=== PATIENT | female | born 1960 | race Caucasian/White ===

== ENCOUNTER 2018-07-28 11:31 | Emergency (ER) | payer MEDICARE ==
[2018-07-28 11:41] VITALS: RESP 18; TEMP 98.1
--- NOTE | 2018-07-28 12:19 | ED ---
General Adult HPI - General Chief complaint: Fall Stated complaint: Fall-arm lac, head injury Source: patient, RN notes reviewed, old records reviewed Mode of arrival: ambulatory Limitations: no limitations - History of Present Illness Initial comments: 58-year-old female patient past medical history of diabetes presents to ED after sustaining a mechanical fall today. Patient was walking in her home when she tripped over a pile of wood and fell forward. Patient reports that she hit her head and scraped her arm on a piece of wood. Patient also reports some pain in her lumbar spine. Patient denies use of blood thinners. Patient denies loss of consciousness. Patient denies headache or changes in vision. Patient denies pain and cervical spine. Patient is ambulatory without difficulty. Patient complains of a abrasion on her right arm. Patient complains of some mild pain in her lumbar spine. Patient denies any other injury sustained. Patient denies chest pain, abdominal pain, shortness of breath. Patient reports that she had her tetanus updated last year. Systemic: Pt denies fatigue, myalgia, fever/chills, rash. Pt denies weakness, night sweats, weight loss. Neuro: Pt denies headache, visual disturbances, syncope or pre-syncope. HEENT: Pt denies ocular discharge or irritation, otalgia, rhinorrhea, pharyngitis or notable lymphadenopathy. Cardiopulmonary: Pt denies chest pain, SOB, heart palpitations, dyspnea on exertion. Abdominal/GI: Pt denies abdominal pain, n/v/d. : Pt denies dysuria, burning w/ urination, frequency/urgency. Denies new onset urinary or bowel incontinence. MSK: Pt denies myalgia, loss of strength or function in extremities. Neuro: Pt denies new onset weakness, paresthesias. - Related Data Previous Rx's Medication Instructions Recorded Levofloxacin [Levaquin] 750 mg PO DAILY 5 Days #5 tab 07/28/18 Allergies Allergy/AdvReac Type Severity Reaction Status Date / Time No Known Allergies Allergy Verified 07/28/18 11:41 Review of Systems ROS Statement: Those systems with pertinent positive or pertinent negative responses have been documented in the HPI. ROS Other: All systems not noted in ROS Statement are negative. Past Medical History Past Medical History: Diabetes Mellitus Additional Past Medical History / Comment(s): CAD. 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 HEENT: NC/AT, trachea midline, neck supple, no lymphadenopathy. Posterior pharynx non erythematous, without exudates. External ears appear normal, without discharge. Mucous membranes moist. Eyes PERRLA, EOM intact. There is no scleral icterus. No pallor noted. Cardiopulmonary: RRR, no murmurs, rubs or gallops, no JVD noted. Lungs CTAB in anterior and posterior saini. No peripheral edema. Abdominal exam: Abdomen soft and non-distended. Abdomen non-tender to palpation in all 4 quadrants. Bowel sounds active in LLQ. No hepatosplenomegaly. No ecchymosis Neuro: CN II-XII intact. No nuchal rigidity. No focal deficit, no facial droop. MSK: No cervical spine tenderness. Full active range of motion in neck. Thoracic spine nontender to palpation. Right para-lumbar spine mildly tender to palpation. Patient states that this pain that she was complaining of. Patient is ambulatory without difficulty. Heel to toe walking intact. Psoas and quadriceps strength 5 out of 5. Plantar and dorsiflexion 5 out of 5. Patellar and Achilles reflexes 2 out of 4. Posterior tibialis and radial pulse +2 bilaterally. Sensation intact in upper and lower extremities. Full active range of motion in upper and lower extremities. No posterior calf tenderness bilaterally, homans sign negative bilaterally. Approximately 8 abrasion on her ulnar surface of right forearm. approximately 5 cm laceration noted on R ulnar forearm. Pt neurovascularly intact before and after suture. Limitations: no limitations Course Vital Signs 07/28/18 07/28/18 11:38 16:28 Temperature 98.1 F 98.1 F Pulse Rate 78 74 Respiratory 18 18 Rate Blood Pressure 127/75 124/70 O2 Sat by Pulse 99 100 Oximetry Procedures - Laceration Laceration #1 Consent Obtained: verbal consent Time Out Performed: Yes Indication: laceration Site: hand Size (cm): 5 Description: linear Depth: simple, single layer Anesthetic Used: lidocaine 1% Anesthesia Technique: local infiltration Amount (mls): 5 Pre-repair: wound explored, irrigated extensively Type of Sutures: nylon Size of Sutures: 5-0 Number of Sutures: 12 Technique: simple, interrupted Patient Tolerated Procedure: well, no complications Medical Decision Making - Medical Decision Making 58-year-old female patient past medical history of diabetes presents to ED after sustaining a mechanical fall today. Patient was walking in her home when she tripped over a pile of wood and fell forward. Patient reports that she hit her head and scraped her arm on a piece of wood. Patient also reports some pain in her lumbar spine. Patient denies use of blood thinners. Patient denies loss of consciousness. Patient denies headache or changes in vision. Patient denies pain and cervical spine. Physical exam displayed normal neurologic exam. An 8 cm abrasion ulnar surface of her right forearm, approximately 5 cm laceration. Pt to return in 10 days for suture removal. Pt educated extensively about suture care and s/sx of infection. CT displayed No acute intracranial abnormality no acute fracture cervical spine. Displayed some spinal canal stenosis. Also displayed CPD possible thyroid nodule. Lumbar CT didn't display any acute process. Forearm CT did not display any acute process. Chest x-ray displayed possible left lower lobe pneumonia. Laceration closed with 12 sutures in ED. Pt did not need tetanus update. Patient tolerated procedure well. Patient treated for pneumonia with 1 g of Rocephin in ED, levaquin outpatient. Patient to follow up with primary care provider tomorrow. Patient to return to ED if any new signs or symptoms develop. Case discussed with Dr. Morales. Disposition Clinical Impression: Community acquired pneumonia, Fall Disposition: HOME SELF-CARE Condition: Good Instructions: Fall Prevention for Older Adults (ED), Community Acquired Pneumonia (ED) Additional Instructions: Patient to adhere to previously discussed treatment plan and will take medication(s) as directed. Patient to follow up with PCP in 1-2 days. Patient to return to ED if symptoms do not improve. Prescriptions: Levofloxacin [Levaquin] 750 mg PO DAILY 5 Days #5 tab Is patient prescribed a controlled substance at d/c from ED?: No Referrals: Remington Zabala MD [Primary Care Provider] - 1-2 days Time of Disposition: 16:04
--- NOTE | 2018-07-28 12:58 | CT ---
EXAMINATION TYPE: CT brain catie sargetn DATE OF EXAM: 07/28/2018 COMPARISON: None HISTORY: 58-year-old female with pain after Fall today with LOC CT DLP: 1206.3 mGycm Automated exposure control for dose reduction was used. Technique: Examination of the head was done in axial plane without intravenous contrast. Coronal and sagittal reconstructions performed. CT of the cervical spine was obtained in axial plane without intravenous injection of contrast mater ial. Coronal and sagittal reformatted images were obtained from the axial views for evaluation of f ractures, spinal alignment and canal. FINDINGS: Head: There is no evidence of acute intracranial hemorrhage, acute ischemic changes, mass, mass-effect, or extra-axial fluid collection. There is no effacement of cerebral sulci or basal subarachnoid cister ns. There is no hydrocephalus. There is no midline shift. Pacheco-white matter distinction is preserv ed. Scattered mild white matter hypodensities suggesting mild burden of chronic small vessel ischemic dis ease. Paranasal sinuses and mastoid air cells well pneumatized. Orbits and globes are intact. Cervical spine: No craniocervical junction abnormally, predental space widening, or prevertebral soft tissue swelling . Reversal of the normal cervical lordosis. Moderate disc/endplate degenerative change mid to lower cervical spine. Uncovertebral joint arthropathy greatest in the lower cervical spine. Alignment is maintained. No acute fracture of the cervical spine. There is a large disc ossific complex C5-C6 causing moderate to severe spinal canal stenosis with AP canal dimension of 4.8 mm. Moderate spinal canal stenosis at C6-C7 secondary to disc osteophyte complex. No high-grade neural foraminal narrowing. Visualized upper lungs shows moderate paraseptal and centrilobular emphysema. 1 cm hypodensity in the left thyroid gland. Sagittal and coronal reformatted images confirm above findings. COMBINED IMPRESSION: 1. No acute intracranial abnormality seen. 2. Acute fracture or malalignment of the cervical spine. 3. However, there is moderate spondylotic change with a large disc osteophyte complex at C5-C6 causin g possible moderate to severe spinal canal stenosis and moderate spinal canal stenosis at C6-C7. 4. COPD. Thyroid ultrasound can evaluate for potential left thyroid nodule.
--- NOTE | 2018-07-28 13:51 | XR ---
EXAMINATION TYPE: XR chest 2V DATE OF EXAM: 07/28/2018 COMPARISON: None HISTORY: 58-year-old female with fall and pain TECHNIQUE: PA and lateral views FINDINGS: Heart normal size. Aorta and pulmonary vasculature within normal limits. Peribronchial cuffing with d iffuse interstitial changes. Opacity is somewhat more patchy and confluent at the left base. No pleur al effusion. IMPRESSION: Interstitial changes of unknown chronicity. Opacity is more confluent and patchy at the left base. Pn eumonia not excluded.
--- NOTE | 2018-07-28 13:52 | XR ---
EXAMINATION TYPE: XR lumbar spine 2 or 3V DATE OF EXAM: 07/28/2018 COMPARISON: NONE HISTORY: 58 year-old female low back pain after fall TECHNIQUE: 3 views FINDINGS: 5 lumbar type vertebral bodies. Some surgical clips along the upper to mid retroperitoneum. Mild endp late spondylosis throughout. Mild disc space narrowing L4-L5 and L5-S1. Vertebral body heights are pr eserved and alignment is maintained. Hypertrophic facet arthropathy throughout especially in the lowe r lumbar spine. IMPRESSION: Mild multilevel degenerative disc disease. Hypertrophic facet arthropathy throughout especially mid t o lower lumbar spine. No vertebral compression collapse or malalignment.
--- NOTE | 2018-07-28 13:54 | XR ---
EXAMINATION TYPE: XR forearm RT, 2 views DATE OF EXAM: 07/28/2018 COMPARISON: NONE HISTORY: 58-year-old female with pain after trip and fall, laceration to right forearm FINDINGS: Some soft tissue swelling along the lateral aspect of the distal forearm. No underlying acute fractur e. The wrist and elbow articulations are grossly intact. IMPRESSION: Some lateral distal forearm soft tissue swelling. No acute osseous abnormality seen.
[2018-07-28] MEDS ORDERED: LIDOCAINE 1% INJ 10MG/ML (20 ML MDV) SQ STA (15:00)
[2018-07-28] MEDS ORDERED: SODIUM CHLORIDE 0.9% 500 ML 500 ML IV STA (15:26)
[2018-07-28] MEDS ORDERED: cefTRIAXone 1,000 MG VIAL (IM USE) IM STA (15:29)
[2018-07-28 16:30] VITALS: BP 124/70; PULSE 74
== END 2018-07-28 16:18 | disposition home or self-care (01) ==
LOC: EC 11:31
DX: J18.9 Pneumonia, unspecified organism (principal); S51.811A Laceration without foreign body of right forearm, initial encounter; S09.90XA Unspecified injury of head, initial encounter; M48.02 Spinal stenosis, cervical region; M54.5 Low back pain; I25.10 Atherosclerotic heart disease of native coronary artery without angina pectoris; F17.200 Nicotine dependence, unspecified, uncomplicated; Z95.1 Presence of aortocoronary bypass graft; Z85.828 Personal history of other malignant neoplasm of skin; Z53.20 Procedure and treatment not carried out because of patient's decision for unspecified reasons; W18.09XA Striking against other object with subsequent fall, initial encounter; Y93.01 Activity, walking, marching and hiking; Y92.009 Unspecified place in unspecified non-institutional (private) residence as the place of occurrence of the external cause
CPT/HCPCS: 72100; 73090; 71046; 72125; 70450; 99284; 12002; 96372; J2001; J0696

== ENCOUNTER 2022-02-15 14:25 | Inpatient (IN) | payer MEDICARE ==
[2022-02-15 14:36] LABS: Glucose,Whole Blood >600 mg/dL (70-110)
[2022-02-15 16:31] LABS: Basophils # (A) 0.1 k/uL (0-0.2); Basophils % (A) 1 %; Eosinophils # (A) 0.1 k/uL (0-0.7); Eosinophils % (A) 1 %; HCT 45.7 % (34.0-46.0); HGB 14.7 gm/dL (11.4-16.0); Lymphocytes # (A) 1.7 k/uL (1.0-4.8); Lymphocytes % (A) 17 %; MCH 32.6 pg (25.0-35.0); MCHC 32.1 g/dL (31.0-37.0); MCV 101.4 fL (80.0-100.0); Mean Platelet Volume 7.7; Monocytes # (A) 0.3 k/uL (0-1.0); Monocytes % (A) 3 %; Neutrophils # (A) 7.9 k/uL (1.3-7.7); Neutrophils % (A) 78 %; Platelet Count 271 k/uL (150-450); RBC 4.51 m/uL (3.80-5.40); RDW 12.2 % (11.5-15.5); WBC 10.1 k/uL (3.8-10.6)
[2022-02-15] MEDS ORDERED: SODIUM CHLORIDE 0.9% 1,000 ML IV ONE (16:34)
[2022-02-15 16:42] LABS: ALT 24 U/L (4-34); AST 50 U/L (14-36); African American GFR (CKD) >90 (>60 ml/min/1.73 sqM); Alkaline Phosphatase 226 U/L (38-126); Anion Gap 8 mmol/L; Blood Urea Nitrogen 28 mg/dL (7-17); Calcium 8.6 mg/dL (8.4-10.2); Carbon Dioxide 30 mmol/L (22-30); Chloride 91 mmol/L (98-107); Non-African American GFR(CKD) >90 (>60 ml/min/1.73 sqM); Sodium 129 mmol/L (137-145); Total Bilirubin 0.3 mg/dL (0.2-1.3); Total Protein 6.6 g/dL (6.3-8.2)
--- NOTE | 2022-02-15 16:44 | ED ---
General Adult HPI - General Chief complaint: Recheck/Abnormal Lab/Rx Stated complaint: Hyperglycemia Time Seen by Provider: 02/15/22 14:30 Source: patient, RN notes reviewed, old records reviewed Mode of arrival: ambulatory Limitations: no limitations - History of Present Illness Initial comments: This is a 62-year-old female presents emergency Department with elevated sugar. Patient is diabetic does not take her insulin as she is post to. According to family has been for months and rolled her sugar spec continuously high the physician has tried to get her into the hospital but she's refused to go but today they finally convinced her she needed to come to hospital via admitted. Patient also has lost quite a bit of weight over the last few years. Patient states at one point time she weighed 240 pounds. Patient states she feels overall weak but has no specific complaints per patient denies headache patient denies numbness weakness per patient denies chest pain difficulty breathing shortness breath per patient denies abdominal pain patient denies diarrhea. Patient does states she was nauseous earlier was vomited twice. Patient states every time she takes sugar for months it reads high - Related Data Home Medications Medication Instructions Recorded Confirmed Aspirin EC [Ecotrin Low Dose] 81 mg PO DAILY 02/15/22 02/15/22 DULoxetine HCL [Cymbalta] 30 mg PO DAILY 02/15/22 02/15/22 Simvastatin [Zocor] 80 mg PO DAILY 02/15/22 02/15/22 diazePAM 2 mg PO TID PRN 02/15/22 02/15/22 lisinopriL [Zestril] 5 mg PO DAILY 02/15/22 02/15/22 metFORMIN HCL 1,000 mg PO BID 02/15/22 02/15/22 oxyCODONE-APAP 10-325MG [Percocet 1 tab PO QID PRN 02/15/22 02/15/22 10-325 mg] Allergies Allergy/AdvReac Type Severity Reaction Status Date / Time No Known Allergies Allergy Verified 02/15/22 18:45 Review of Systems ROS Statement: Those systems with pertinent positive or pertinent negative responses have been documented in the HPI. ROS Other: All systems not noted in ROS Statement are negative. Past Medical History Past Medical History: Diabetes Mellitus Additional Past Medical History / Comment(s): CAD. 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 History of Any Multi-Drug Resistant Organisms: None Reported Past Surgical History: Coronary Bypass/CABG Past Psychological History: No Psychological Hx Reported Smoking Status: Current every day smoker Past Alcohol Use History: None Reported Past Drug Use History: None Reported General Exam - General Exam Comments Initial Comments: GENERAL: Patient is cachectic. Patient is nontoxic and well-hydrated and is in no acute distress. ENT: Neck is soft and supple. No significant lymphadenopathy is noted. Oropharynx is clear. Moist mucous membranes. Neck has full range of motion without eliciting any pain. EYES: The sclera were anicteric and conjunctiva were pink and moist. Extraocular movements were intact and pupils were equal round and reactive to light. Eyelids were unremarkable. PULMONARY: Unlabored respirations. Good breath sounds bilaterally. No audible rales rhonchi or wheezing was noted. CARDIOVASCULAR: There is a regular rate and rhythm without any murmurs gallops or rubs. ABDOMEN: Soft and nontender with normal bowel sounds. SKIN: Skin is clear with no lesions or rashes and otherwise unremarkable. NEUROLOGIC: Patient is alert and oriented x3. Cranial nerves II through XII are grossly intact. Motor and sensory are also intact. Normal speech, volume and content. Symmetrical smile. MUSCULOSKELETAL: Normal extremities with adequate strength and full range of motion. LYMPHATICS: No significant lymphadenopathy is noted PSYCHIATRIC: Normal psychiatric evaluation. Limitations: no limitations Course Vital Signs 02/15/22 14:29 Temperature 97.6 F Pulse Rate 101 H Respiratory 18 Rate Blood Pressure 77/51 O2 Sat by Pulse 98 Oximetry Medical Decision Making - Medical Decision Making Patient was given a liter of fluid and started an insulin drip. Patient was diagnosed with DKA spoke with Dr. Horne he agreed to admit the patient admitted the patient wrote admitting orders. I continue the insulin drip on the floor as well as some fluids. - Lab Data Result diagrams: 02/15/22 16:21 02/15/22 16:21 Lab Results 02/15/22 02/15/22 02/15/22 Range/Units 14:33 16:21 16:21 WBC 10.1 (3.8-10.6) k/uL RBC 4.51 (3.80-5.40) m/uL Hgb 14.7 (11.4-16.0) gm/dL Hct 45.7 (34.0-46.0) % MCV 101.4 H (80.0-100.0) fL MCH 32.6 (25.0-35.0) pg MCHC 32.1 (31.0-37.0) g/dL RDW 12.2 (11.5-15.5) % Plt Count 271 (150-450) k/uL MPV 7.7 Neutrophils % 78 % Lymphocytes % 17 % Monocytes % 3 % Eosinophils % 1 % Basophils % 1 % Neutrophils # 7.9 H (1.3-7.7) k/uL Lymphocytes # 1.7 (1.0-4.8) k/uL Monocytes # 0.3 (0-1.0) k/uL Eosinophils # 0.1 (0-0.7) k/uL Basophils # 0.1 (0-0.2) k/uL Sodium 129 L (137-145) mmol/L Potassium 5.0 (3.5-5.1) mmol/L Chloride 91 L (98-107) mmol/L Carbon Dioxide 30 (22-30) mmol/L Anion Gap 8 mmol/L BUN 28 H (7-17) mg/dL Creatinine 0.52 (0.52-1.04) mg/dL Est GFR (CKD-EPI)AfAm >90 (>60 ml/min/1.73 sqM) Est GFR (CKD-EPI)NonAf >90 (>60 ml/min/1.73 sqM) Glucose 602 H* (74-99) mg/dL POC Glucose (mg/dL) >600 H (70-110) mg/dL POC Glu [facility]giver ID Erika Machado Calcium 8.6 (8.4-10.2) mg/dL Total Bilirubin 0.3 (0.2-1.3) mg/dL AST 50 H (14-36) U/L ALT 24 (4-34) U/L Alkaline Phosphatase 226 H (38-126) U/L Total Protein 6.6 (6.3-8.2) g/dL Albumin 4.0 (3.5-5.0) g/dL Urine Color Urine Appearance (Clear) Urine pH (5.0-8.0) Ur Specific [place] (1.001-1.035) Urine Protein (Negative) Urine Glucose (UA) (Negative) Urine Ketones (Negative) Urine Blood (Negative) Urine Nitrite (Negative) Urine Bilirubin (Negative) Urine Urobilinogen (<2.0) mg/dL Ur Leukocyte Esterase (Negative) Urine RBC (0-5) /hpf Urine WBC Clumps (None) /hpf Ur Squamous Epith Cells (0-4) /hpf Urine Bacteria (None) /hpf Urine Mucus (None) /hpf Acetone, Qual Positive (Negative) 02/15/22 02/15/22 Range/Units 16:22 19:18 WBC (3.8-10.6) k/uL RBC (3.80-5.40) m/uL Hgb (11.4-16.0) gm/dL Hct (34.0-46.0) % MCV (80.0-100.0) fL MCH (25.0-35.0) pg MCHC (31.0-37.0) g/dL RDW (11.5-15.5) % Plt Count (150-450) k/uL MPV Neutrophils % % Lymphocytes % % Monocytes % % Eosinophils % % Basophils % % Neutrophils # (1.3-7.7) k/uL Lymphocytes # (1.0-4.8) k/uL Monocytes # (0-1.0) k/uL Eosinophils # (0-0.7) k/uL Basophils # (0-0.2) k/uL Sodium (137-145) mmol/L Potassium (3.5-5.1) mmol/L Chloride (98-107) mmol/L Carbon Dioxide (22-30) mmol/L Anion Gap mmol/L BUN (7-17) mg/dL Creatinine (0.52-1.04) mg/dL Est GFR (CKD-EPI)AfAm (>60 ml/min/1.73 sqM) Est GFR (CKD-EPI)NonAf (>60 ml/min/1.73 sqM) Glucose (74-99) mg/dL POC Glucose (mg/dL) 494 H (70-110) mg/dL POC Glu [facility] Caregiver ID Paras, Tammi Calcium (8.4-10.2) mg/dL Total Bilirubin (0.2-1.3) mg/dL AST (14-36) U/L ALT (4-34) U/L Alkaline Phosphatase (38-126) U/L Total Protein (6.3-8.2) g/dL Albumin (3.5-5.0) g/dL Urine Color Light Yellow Urine Appearance Clear (Clear) Urine pH 5.0 (5.0-8.0) Ur Specific [place] 1.028 (1.001-1.035) Urine Protein Negative (Negative) Urine Glucose (UA) 4+ H (Negative) Urine Ketones 1+ H (Negative) Urine Blood Negative (Negative) Urine Nitrite Positive H (Negative) Urine Bilirubin Negative (Negative) Urine Urobilinogen <2.0 (<2.0) mg/dL Ur Leukocyte Esterase Negative (Negative) Urine RBC 1 (0-5) /hpf Urine WBC Clumps Rare H (None) /hpf Ur Squamous Epith Cells 1 (0-4) /hpf Urine Bacteria Rare H (None) /hpf Urine Mucus Rare H (None) /hpf Acetone, Qual (Negative) Critical Care Time Critical Care Time: Yes Total Critical Care Time: 35 Disposition Clinical Impression: Diabetic ketoacidosis Disposition: ADMITTED IP TO THIS HOSP Referrals: Remington Zabala MD [Primary Care Provider] - 1-2 days Time of Disposition: 19:21
[2022-02-15 16:45] LABS: Glucose 602 mg/dL (74-99)
[2022-02-15] MEDS ORDERED: Magnesium Replacement Protocol 1 EACH MISC MISCELLANE PRN (17:01)
[2022-02-15] MEDS ORDERED: INSULIN REGULAR BOLUS (FROM DRIP BAG) IV ONE (17:01)
[2022-02-15] MEDS ORDERED: Potassium Replacement Protocol 1 EACH MISC MISCELLANE PRN (17:01)
[2022-02-15] MEDS ORDERED: INSULIN REGULAR 100 UNIT in SODIUM CHLORIDE 0.9% 100 ML IV SCH (17:15)
--- NOTE | 2022-02-15 17:31 | XR ---
EXAMINATION TYPE: XR chest 2V DATE OF EXAM: 02/15/2022 5:06 PM COMPARISON: Chest radiographs from 07/28/2019 TECHNIQUE: XR chest 2V Frontal and lateral views of the chest. CLINICAL INDICATION:Female, 62 years old with history of Difficulty breathing ; FINDINGS: Lungs/Pleura: There is no evidence of pleural effusion, focal consolidation, or pneumothorax. Pseudo nodular appearance suggested involving ribs predominantly in the left lung base but also in the righ t lung base likely secondary to summation of overlying soft tissues. No nodules seen on lateral view. Pulmonary vascularity: Unremarkable. Heart/mediastinum: Cardiomediastinal silhouette is unremarkable. Musculoskeletal: No acute osseous pathology. IMPRESSION: No acute cardiopulmonary disease/process.
[2022-02-15 19:15] LABS: Appearance,Urine Clear (Clear); Bacteria,Urine Rare /hpf; Bilirubin,Urine Negative (Negative); Blood,Urine Negative (Negative); Color,Urine Light Yellow; Glucose,Urine (UA) 4+ (Negative); Ketones,Urine 1+ (Negative); Leukocyte Esterase,Urine Negative (Negative); Mucus,Urine Rare /hpf; Nitrite,Urine Positive (Negative); Protein,Urine Negative (Negative); RBC,Urine 1 /hpf (0-5); Specific Gravity,Urine 1.028 (1.001-1.035); Squamous Epithelial Cell,Urine 1 /hpf (0-4); Urobilinogen,Urine <2.0 mg/dL (<2.0)
[2022-02-15 19:21] LABS: Glucose,Whole Blood 494 mg/dL (70-110)
[2022-02-15] MEDS ORDERED: oxyCODONE-APAP 10-325MG 1 EACH TAB PO STA (19:39)
[2022-02-15 20:32] LABS: Glucose,Whole Blood 457 mg/dL (70-110)
[2022-02-15 20:49] LABS: VBG PH 7.42 (7.31-7.41)
[2022-02-15 20:58] LABS: African American GFR (CKD) >90 (>60 ml/min/1.73 sqM); Anion Gap 11 mmol/L; Blood Urea Nitrogen 23 mg/dL (7-17); Carbon Dioxide 25 mmol/L (22-30); Chloride 92 mmol/L (98-107); Glucose 433 mg/dL (74-99); Non-African American GFR(CKD) >90 (>60 ml/min/1.73 sqM); Potassium 4.8 mmol/L (3.5-5.1); Sodium 128 mmol/L (137-145)
[2022-02-15 21:45] LABS: Glucose,Whole Blood 349 mg/dL (70-110)
[2022-02-15] MEDS: SODIUM CHLORIDE 0.9% 1,000 ML IV SCH ×2 (21:51→23:39)
[2022-02-15] MEDS: diazePAM 2 MG TAB PO PRN (22:38)
[2022-02-15 22:44] LABS: Glucose,Whole Blood 275 mg/dL (70-110)
[2022-02-15 23:25] LABS: Glucose,Whole Blood 238 mg/dL (70-110)
[2022-02-16 00:32] LABS: Glucose,Whole Blood 162 mg/dL (70-110)
[2022-02-16 00:47] LABS: African American GFR (CKD) >90 (>60 ml/min/1.73 sqM); Anion Gap 5 mmol/L; Blood Urea Nitrogen 23 mg/dL (7-17); Carbon Dioxide 29 mmol/L (22-30); Chloride 96 mmol/L (98-107); Glucose 195 mg/dL (74-99); Magnesium 1.2 mg/dL (1.6-2.3); Non-African American GFR(CKD) >90 (>60 ml/min/1.73 sqM); Potassium 4.3 mmol/L (3.5-5.1); Sodium 130 mmol/L (137-145)
[2022-02-16] MEDS: MAGNESIUM SULFATE-D5W PMX 1 GM in DEXTROSE/WATER 1 100ML.BAG IVPB SCH ×3 (01:14→03:46)
[2022-02-16 01:55] LABS: Glucose,Whole Blood 80 mg/dL (70-110)
[2022-02-16] MEDS ORDERED: INSULIN NPH 300 UNIT/3 ML VIAL SQ ONE (02:16)
[2022-02-16 02:30] LABS: Glucose,Whole Blood 99 mg/dL (70-110)
[2022-02-16] MEDS: D5-0.45% NACL WITH KCL 20MEQ/L 1,000 ML IV SCH ×2 (02:37→16:24)
[2022-02-16] MEDS: oxyCODONE-APAP 10-325MG 1 EACH TAB PO PRN ×4 (02:47→21:50)
[2022-02-16] MEDS: INSULIN ASPART (NovoLOG) 100 UNIT/ML VIAL SQ SCH ×3 (06:07→18:18)
[2022-02-16 06:24] LABS: Glucose,Whole Blood 98 mg/dL (70-110)
--- NOTE | 2022-02-16 07:48 | P.HPIM ---
History of Present Illness Chief Complaint: Diabetic ketoacidosis. This is a continue progress on a 62-year-old white female who has struggled due to significant family stress with her grandsons. The patient has struggled because they are having difficulty and and getting involved in drug related complications. She states that her grandson had gunshot wounds to the face and that she has stressed because of this. However, significant opioid dependence and has lost about 10 pounds in the last 6 weeks due to poorly controlled blood sugar. The patient was forced to come in due to her family. She has been refusing hospitalization. Hemoglobin A1c is on detectable anti-in my office. Blood sugar has been averaging around 500. She's been significantly noncompliant. The daughter and I had a long discussion and she states that she is probably not taking her medication appropriately and sometimes doesn't take anything for her and diabetes. The patient was admitted and started on appropriate DKA protocol. Review of Systems Constitutional: Denies chills, Denies fever Eyes: denies blurred vision, denies pain Ears, nose, mouth and throat: Denies headache, Denies sore throat Cardiovascular: Denies chest pain, Denies shortness of breath Genitourinary: Reports nocturia Psychiatric: Reports anxiety, Reports hopelessness, Reports mood swings Past Medical History Past Medical History: Diabetes Mellitus Additional Past Medical History / Comment(s): CAD. 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 History of Any Multi-Drug Resistant Organisms: None Reported Past Surgical History: Coronary Bypass/CABG Past Psychological History: No Psychological Hx Reported Smoking Status: Current every day smoker Past Alcohol Use History: None Reported Past Drug Use History: None Reported Medications and Allergies Home Medications Medication Instructions Recorded Confirmed Type Aspirin EC [Ecotrin Low Dose] 81 mg PO DAILY 02/15/22 02/15/22 History DULoxetine HCL [Cymbalta] 30 mg PO DAILY 02/15/22 02/15/22 History Simvastatin [Zocor] 80 mg PO DAILY 02/15/22 02/15/22 History diazePAM 2 mg PO TID PRN 02/15/22 02/15/22 History lisinopriL [Zestril] 5 mg PO DAILY 02/15/22 02/15/22 History metFORMIN HCL 1,000 mg PO BID 02/15/22 02/15/22 History oxyCODONE-APAP 10-325MG [Percocet 1 tab PO QID PRN 02/15/22 02/15/22 History 10-325 mg] Allergies Allergy/AdvReac Type Severity Reaction Status Date / Time No Known Allergies Allergy Verified 02/15/22 18:45 Physical Exam Vitals: Vital Signs Temp Pulse Pulse Resp BP BP Pulse Ox 02/16/22 03:44 97.5 F L 74 18 94/55 98 02/16/22 02:00 80 18 02/15/22 23:41 97.9 F 80 18 84/56 95 02/15/22 20:00 98.6 F 96 20 94/49 94 L 02/15/22 19:36 98.2 F 82 18 94/65 96 02/15/22 14:29 97.6 F 101 H 18 77/51 98 Intake and Output 02/15/22 02/16/22 02/16/22 22:59 06:59 14:59 Intake Total 115.466 789.493 Balance 115.466 789.493 Intake: IV 100 100 Invasive Line 1 100 100 Intake, IV Titration 15.466 229.493 Amount Insulin Regular 100 unit 15.466 29.493 In Sodium Chloride 0.9% 100 ml @ 0.1 UNITS/KG/HR 3.665 mls/hr IV .Q24H MYRTLE Rx#:[id number] Sodium Chloride 0.9% 1, 200 000 ml @ 200 mls/hr IV . Q5H MYRTLE Rx#:[id number] Oral 460 Other: Voiding Method Toilet Toilet # Voids 1 Weight 36.287 kg - Constitutional General appearance: no acute distress, thin - EENT Eyes: EOMI - Respiratory Respiratory: bilateral: CTA - Cardiovascular Rhythm: regular Heart sounds: normal: S1, S2 Abnormal Heart Sounds: no S3 Gallop - Gastrointestinal General gastrointestinal: no tenderness - Neurologic Neurologic: CNII-XII intact - Psychiatric Psychiatric: A&O x's 3 Results CBC & Chem 7: 02/15/22 16:21 02/15/22 23:35 Labs: Abnormal Lab Results - Last 24 Hours (Table) 02/15/22 02/15/22 02/15/22 Range/Units 14:33 16:21 16:21 MCV 101.4 H (80.0-100.0) fL Neutrophils # 7.9 H (1.3-7.7) k/uL VBG pH (7.31-7.41) VBG HCO3 (24-28) mmol/L Sodium 129 L (137-145) mmol/L Chloride 91 L (98-107) mmol/L BUN 28 H (7-17) mg/dL Creatinine (0.52-1.04) mg/dL Glucose 602 H* (74-99) mg/dL POC Glucose (mg/dL) >600 H (70-110) mg/dL Magnesium (1.6-2.3) mg/dL AST 50 H (14-36) U/L Alkaline Phosphatase 226 H (38-126) U/L Urine Glucose (UA) (Negative) Urine Ketones (Negative) Urine Nitrite (Negative) Urine WBC Clumps (None) /hpf Urine Bacteria (None) /hpf Urine Mucus (None) /hpf 02/15/22 02/15/22 02/15/22 Range/Units 16:22 19:18 20:21 MCV (80.0-100.0) fL Neutrophils # (1.3-7.7) k/uL VBG pH 7.42 H (7.31-7.41) VBG HCO3 29 H (24-28) mmol/L Sodium (137-145) mmol/L Chloride (98-107) mmol/L BUN (7-17) mg/dL Creatinine (0.52-1.04) mg/dL Glucose (74-99) mg/dL POC Glucose (mg/dL) 494 H (70-110) mg/dL Magnesium (1.6-2.3) mg/dL AST (14-36) U/L Alkaline Phosphatase (38-126) U/L Urine Glucose (UA) 4+ H (Negative) Urine Ketones 1+ H (Negative) Urine Nitrite Positive H (Negative) Urine WBC Clumps Rare H (None) /hpf Urine Bacteria Rare H (None) /hpf Urine Mucus Rare H (None) /hpf 02/15/22 02/15/22 02/15/22 Range/Units 20:21 20:31 21:43 MCV (80.0-100.0) fL Neutrophils # (1.3-7.7) k/uL VBG pH (7.31-7.41) VBG HCO3 (24-28) mmol/L Sodium 128 L (137-145) mmol/L Chloride 92 L (98-107) mmol/L BUN 23 H (7-17) mg/dL Creatinine 0.51 L (0.52-1.04) mg/dL Glucose 433 H (74-99) mg/dL POC Glucose (mg/dL) 457 H 349 H (70-110) mg/dL Magnesium (1.6-2.3) mg/dL AST (14-36) U/L Alkaline Phosphatase (38-126) U/L Urine Glucose (UA) (Negative) Urine Ketones (Negative) Urine Nitrite (Negative) Urine WBC Clumps (None) /hpf Urine Bacteria (None) /hpf Urine Mucus (None) /hpf 02/15/22 02/15/22 02/15/22 Range/Units 22:42 23:22 23:35 MCV (80.0-100.0) fL Neutrophils # (1.3-7.7) k/uL VBG pH (7.31-7.41) VBG HCO3 (24-28) mmol/L Sodium 130 L (137-145) mmol/L Chloride 96 L (98-107) mmol/L BUN 23 H (7-17) mg/dL Creatinine 0.46 L (0.52-1.04) mg/dL Glucose 195 H (74-99) mg/dL POC Glucose (mg/dL) 275 H 238 H (70-110) mg/dL Magnesium 1.2 L (1.6-2.3) mg/dL AST (14-36) U/L Alkaline Phosphatase (38-126) U/L Urine Glucose (UA) (Negative) Urine Ketones (Negative) Urine Nitrite (Negative) Urine WBC Clumps (None) /hpf Urine Bacteria (None) /hpf Urine Mucus (None) /hpf 02/16/22 Range/Units 00:30 MCV (80.0-100.0) fL Neutrophils # (1.3-7.7) k/uL VBG pH (7.31-7.41) VBG HCO3 (24-28) mmol/L Sodium (137-145) mmol/L Chloride (98-107) mmol/L BUN (7-17) mg/dL Creatinine (0.52-1.04) mg/dL Glucose (74-99) mg/dL POC Glucose (mg/dL) 162 H (70-110) mg/dL Magnesium (1.6-2.3) mg/dL AST (14-36) U/L Alkaline Phosphatase (38-126) U/L Urine Glucose (UA) (Negative) Urine Ketones (Negative) Urine Nitrite (Negative) Urine WBC Clumps (None) /hpf Urine Bacteria (None) /hpf Urine Mucus (None) /hpf Thrombosis Risk Factor Assmnt - Choose All That Apply Any of the Below Risk Factors Present?: No Other Risk Factors: Yes Each Risk Factor Represents 2 Points: Age 61-74 years Thrombosis Risk Factor Assessment Total Risk Factor Score: 2 Thrombosis Risk Factor Assessment Level: Low Risk Assessment and Plan (1) Family history of stress Current Visit: Yes Status: Acute Code(s): Z81.8 - FAMILY HISTORY OF OTHER MENTAL AND BEHAVIORAL DISORDERS SNOMED Code(s): 28726788 (2) Hypomagnesemia Current Visit: Yes Status: Acute Code(s): E83.42 - HYPOMAGNESEMIA SNOMED Code(s): 314788672 (3) Hyponatremia Current Visit: Yes Status: Acute Code(s): E87.1 - HYPO-OSMOLALITY AND HYPO NATREMIA SNOMED Code(s): 48805411 (4) Diabetic ketoacidosis Current Visit: Yes Status: Acute Code(s): E11.10 - TYPE 2 DIABETES MELLITUS WITH KETOACIDOSIS WITHOUT COMA SNOMED Code(s): 178977396 Plan: The patient is now on basal bolus with sliding scale. Check CMP and magnesium in a.m. Reconcile medications. The patient will have appropriate diabetes education. The daughter states that she has been noncompliant with taking her medication and is most likely abusing her pain medication. We will attempt to slowly wean her medication
[2022-02-16] MEDS: ATORVASTATIN 40 MG TAB PO SCH (08:42)
[2022-02-16] MEDS: DULoxetine HCL 30 MG CAPSULE.DR PO SCH (08:42)
[2022-02-16] MEDS: ASPIRIN 81 MG PO SCH (08:42)
[2022-02-16] MEDS: lisinopriL 5 MG TAB PO SCH (09:04)
[2022-02-16 11:34] LABS: Glucose,Whole Blood 375 mg/dL (70-110)
[2022-02-16 11:54] VITALS: BMI 12.9
[2022-02-16 16:38] LABS: Glucose,Whole Blood >600 mg/dL (70-110)
[2022-02-16] MEDS: diazePAM 2 MG TAB PO PRN (17:19)
[2022-02-16] MEDS: INSULIN REGULAR 100 UNIT in SODIUM CHLORIDE 0.9% 100 ML IV SCH (18:32)
[2022-02-16 20:00] LABS: Glucose,Whole Blood >600 mg/dL (70-110)
[2022-02-16] MEDS ORDERED: INSULIN DETEMIR (LEVEMIR) 100 UNIT/ML SYR SQ SCH (21:00)
[2022-02-16 22:08] LABS: Glucose,Whole Blood 415 mg/dL (70-110)
[2022-02-17] LABS: Glucose,Whole Blood 291 mg/dL (70-110)
[2022-02-17 02:03] LABS: Glucose,Whole Blood 311 mg/dL (70-110)
[2022-02-17] MEDS: diazePAM 2 MG TAB PO PRN ×3 (02:13→21:22)
[2022-02-17 04:14] LABS: Glucose,Whole Blood 159 mg/dL (70-110)
[2022-02-17] MEDS: INSULIN REGULAR 100 UNIT in SODIUM CHLORIDE 0.9% 100 ML IV SCH (04:18)
[2022-02-17 06:10] LABS: Glucose,Whole Blood 96 mg/dL (70-110)
[2022-02-17] MEDS: D5-0.45% NACL WITH KCL 20MEQ/L 1,000 ML IV SCH ×2 (06:15→14:25)
[2022-02-17 07:12] LABS: Glucose,Whole Blood 115 mg/dL (70-110)
[2022-02-17 08:00] LABS: Glucose,Whole Blood 139 mg/dL (70-110)
--- NOTE | 2022-02-17 08:23 | P.PN ---
Subjective Principal diagnosis: Hyperglycemia The patient is 62-year-old white female with noncompliant uncontrolled diabetes. She is treated for DKA and is now slowly been stabilizing we will wean off insulin drip today and have discussed appropriate dietary control. She needs to gain weight she's been significantly depressed related to family issues. Objective - Vital Signs Vital signs: Vital Signs Temp 98.0 F 02/17/22 03:50 Pulse 82 02/17/22 03:50 Resp 16 02/17/22 03:50 BP 100/61 02/17/22 03:50 Pulse Ox 98 02/17/22 03:50 FiO2 Intake & Output 02/16/22 02/17/22 02/17/22 18:59 06:59 18:59 Intake Total 236 104.767 0 Balance 236 104.767 0 Weight 36.287 kg Intake: Intake, IV Titration 104.767 0 Amount Insulin Regular 100 unit 104.767 0 In Sodium Chloride 0.9% 100 ml @ Titrate IV .Q0M MYRTLE Rx#:[id number] Oral 236 Other: Voiding Method Toilet Toilet # Voids 3 1 - Constitutional General appearance: Present: thin - EENT Eyes: Absent: abnormal pupil - Neck Neck: Absent: lymphadenopathy - Respiratory Respiratory: bilateral: diminished - Cardiovascular Rhythm: regular Heart sounds: normal: S1, S2 Abnormal Heart Sounds: Absent: S3 Gallop - Gastrointestinal General gastrointestinal: Present: soft - Labs CBC & Chem 7: 02/15/22 16:21 02/16/22 20:29 Labs: Abnormal Lab Results - Last 24 Hours (Table) 02/16/22 02/16/22 02/16/22 Range/Units 11:32 16:34 17:09 Glucose 757 H* (74-99) mg/dL POC Glucose (mg/dL) 375 H >600 H (70-110) mg/dL 02/16/22 02/16/22 02/16/22 Range/Units 19:59 20:29 22:07 Glucose 637 H* (74-99) mg/dL POC Glucose (mg/dL) >600 H 415 H (70-110) mg/dL 02/16/22 02/17/22 02/17/22 Range/Units 23:59 02:01 04:12 Glucose (74-99) mg/dL POC Glucose (mg/dL) 291 H 311 H 159 H (70-110) mg/dL 02/17/22 02/17/22 Range/Units 07:09 07:58 Glucose (74-99) mg/dL POC Glucose (mg/dL) 115 H 139 H (70-110) mg/dL Assessment and Plan (1) Family history of stress Current Visit: Yes Status: Acute Code(s): Z81.8 - FAMILY HISTORY OF OTHER MENTAL AND BEHAVIORAL DISORDERS SNOMED Code(s): 30592636 (2) Hypomagnesemia Current Visit: Yes Status: Acute Code(s): E83.42 - HYPOMAGNESEMIA SNOMED Code(s): 586568553 (3) Hyponatremia Current Visit: Yes Status: Acute Code(s): E87.1 - HYPO-OSMOLALITY AND HYPONATREMIA SNOMED Code(s): 83626233 (4) Diabetic ketoacidosis Current Visit: Yes Status: Acute Code(s): E11.10 - TYPE 2 DIABETES MELLITUS WITH KETOACIDOSIS WITHOUT COMA SNOMED Code(s): 295673181 Plan: The patient is now on basal bolus with sliding scale. Check CMP and magnesium in a.m. Reconcile medications. The patient will have appropriate diabetes education. The daughter states that she has been noncompliant with taking her medication and is most likely abusing her pain medication. We will attempt to slowly wean her medication
[2022-02-17] MEDS: lisinopriL 5 MG TAB PO SCH ×2 (08:24→08:26)
[2022-02-17] MEDS: ATORVASTATIN 40 MG TAB PO SCH (08:24)
[2022-02-17] MEDS: DULoxetine HCL 30 MG CAPSULE.DR PO SCH (08:24)
[2022-02-17] MEDS: ASPIRIN 81 MG PO SCH (08:24)
[2022-02-17] MEDS: INSULIN ASPART (NovoLOG) 100 UNIT/ML VIAL SQ SCH ×6 (08:25→21:20)
[2022-02-17] MEDS: oxyCODONE-APAP 10-325MG 1 EACH TAB PO PRN ×3 (08:29→21:22)
[2022-02-17 09:08] LABS: ALT 35 U/L (4-34); AST 45 U/L (14-36); African American GFR (CKD) >90 (>60 ml/min/1.73 sqM); Albumin 3.3 g/dL (3.5-5.0); Alkaline Phosphatase 136 U/L (38-126); Anion Gap 5 mmol/L; Blood Urea Nitrogen 12 mg/dL (7-17); Carbon Dioxide 24 mmol/L (22-30); Chloride 106 mmol/L (98-107); Glucose 142 mg/dL (74-99); Non-African American GFR(CKD) >90 (>60 ml/min/1.73 sqM); Potassium 5.1 mmol/L (3.5-5.1); Sodium 135 mmol/L (137-145); Total Bilirubin 0.3 mg/dL (0.2-1.3); Total Protein 5.8 g/dL (6.3-8.2)
[2022-02-17 12:11] LABS: Glucose,Whole Blood 470 mg/dL (70-110)
[2022-02-17 16:51] LABS: Glucose,Whole Blood 470 mg/dL (70-110)
[2022-02-17 17:26] VITALS: RESP 16
[2022-02-17 20:32] LABS: Glucose,Whole Blood 486 mg/dL (70-110)
[2022-02-17] MEDS ORDERED: INSULIN DETEMIR (LEVEMIR) 100 UNIT/ML SYR SQ SCH ×2 (21:00)
[2022-02-18] MEDS: oxyCODONE-APAP 10-325MG 1 EACH TAB PO PRN (04:44)
[2022-02-18 07:36] LABS: Glucose,Whole Blood 114 mg/dL (70-110)
[2022-02-18 08:18] LABS: ALT 33 U/L (4-34); AST 35 U/L (14-36); African American GFR (CKD) >90 (>60 ml/min/1.73 sqM); Albumin 3.2 g/dL (3.5-5.0); Alkaline Phosphatase 127 U/L (38-126); Anion Gap 4 mmol/L; Blood Urea Nitrogen 17 mg/dL (7-17); Carbon Dioxide 30 mmol/L (22-30); Chloride 102 mmol/L (98-107); Glucose 115 mg/dL (74-99); Magnesium 1.2 mg/dL (1.6-2.3); Non-African American GFR(CKD) >90 (>60 ml/min/1.73 sqM); Potassium 4.2 mmol/L (3.5-5.1); Sodium 136 mmol/L (137-145); Total Bilirubin 0.1 mg/dL (0.2-1.3); Total Protein 5.6 g/dL (6.3-8.2)
[2022-02-18] MEDS: ASPIRIN 81 MG PO SCH (08:39)
[2022-02-18] MEDS: DULoxetine HCL 30 MG CAPSULE.DR PO SCH (08:39)
[2022-02-18] MEDS: INSULIN ASPART (NovoLOG) 100 UNIT/ML VIAL SQ SCH ×4 (08:39→12:16)
[2022-02-18] MEDS: ATORVASTATIN 40 MG TAB PO SCH (08:39)
[2022-02-18] MEDS: lisinopriL 5 MG TAB PO SCH (08:39)
[2022-02-18] MEDS: diazePAM 2 MG TAB PO PRN (08:43)
[2022-02-18 08:46] VITALS: BP 96/83; PULSE 83; TEMP 98.1
[2022-02-18] MEDS: D5-0.45% NACL WITH KCL 20MEQ/L 1,000 ML IV SCH (11:33)
[2022-02-18 12:11] LABS: Glucose,Whole Blood 301 mg/dL (70-110)
--- NOTE | 2022-02-21 12:38 | CDI ---
Documentation Clarification Form Date: 02/21/22 From: Hillary Rao Admit Date: 02/15/2022 07:32:00 PM Patient Name: Suzi Alcantara Visit Number: [id number] Discharge Date: 02/18/2022 01:04:00 PM ATTENTION: The Clinical Documentation Specialists (CDI) and [facility] Coding Staff appreciate your assistance in clarifying documentation. Please respond to the clarification below the line at the bottom and electronically sign. The CDI & [facility] Coding staff will review the response and follow-up if needed. Please note: Queries are made part of the Legal Health Record. If you have any questions, please contact the author of this message via ITS. Dr. Remington Zabala, The Registered Dietitian assessment on 02/16 indicates this patient meets criteria for malnutrition dx & chronic severe. Based on this information and the findings below, is there an additional diagnosis that is clinically appropriate for this patient? History/Risk Factors: DKA, CAD, CABG, hyponatremia, smoker Clinical Indicators: Per RD: Intake <75% of estimated needs > 1month, involuntary weight loss of 20% in 1 year Current BMI: 12.9 Treatment: Consistent CHO diet, Glucerna TID Is there an additional diagnosis that is clinically appropriate for this patient? [ ] Mild Protein-Calorie Malnutrition [ x] Moderate Protein-Calorie Malnutrition [ ] Severe Protein-Calorie Malnutrition [ ] Other condition, please specify [ ] Unable to Determine MTDD
--- NOTE | 2022-03-03 10:46 | P.DS ---
Providers Date of admission: 02/15/22 19:32 Attending physician: Remington Zabala Primary care physician: Remington Zabala - Discharge Diagnosis(es) (1) Family history of stress Status: Acute (2) Hypomagnesemia Status: Acute (3) Hyponatremia Status: Acute (4) Diabetic ketoacidosis Status: Acute Hospital Course: This is discharge from a 62-year-old white female centimeter for diabetic ketoacidosis. Opiate dependence secondary to DDD. The patient was stabilized after being placed on appropriate protocol. She started tolerating diet and blood sugar was started be come more treatable. After dehydration was treated. The patient was stabilized and will follow up with me in about 3-4 days. Patient tolerating diet blood sugars still somewhat elevated but much improved. Hemoglobin A1c in my office was too high to treat. She has been like this for many months and will hopefully change her ways as far as treating her disease. Plan - Discharge Summary Discharge Rx Participant: Yes New Discharge Prescriptions: New Insulin Detemir (Levemir) [Levemir] 24 unit SQ HS #300 each INSULIN ASPART (NovoLOG) [NovoLOG (formulary)] 8 unit SQ AC-TID #300 units Continue lisinopriL [Zestril] 5 mg PO DAILY diazePAM 2 mg PO TID PRN PRN Reason: Anxiety DULoxetine HCL [Cymbalta] 30 mg PO DAILY Aspirin EC [Ecotrin Low Dose] 81 mg PO DAILY oxyCODONE-APAP 10-325MG [Percocet 10-325 mg] 1 tab PO QID PRN PRN Reason: Pain metFORMIN HCL 1,000 mg PO BID Simvastatin [Zocor] 80 mg PO DAILY Discharge Medication List Aspirin EC [Ecotrin Low Dose] 81 mg PO DAILY 02/15/22 [History] DULoxetine HCL [Cymbalta] 30 mg PO DAILY 02/15/22 [History] Simvastatin [Zocor] 80 mg PO DAILY 02/15/22 [History] diazePAM 2 mg PO TID PRN 02/15/22 [History] lisinopriL [Zestril] 5 mg PO DAILY 02/15/22 [History] metFORMIN HCL 1,000 mg PO BID 02/15/22 [History] oxyCODONE-APAP 10-325MG [Percocet 10-325 mg] 1 tab PO QID PRN 02/15/22 [History] INSULIN ASPART (NovoLOG) [NovoLOG (formulary)] 8 unit SQ AC-TID #300 units 02/18/22 [Rx] Insulin Detemir (Levemir) [Levemir] 24 unit SQ HS #300 each 02/18/22 [Rx] Follow up Appointment(s)/Referral(s): Remington Zabala MD [Primary Care Provider] - 3 Days (please call to make an appointment) Patient Instructions/Handouts: Diabetic Ketoacidosis (DC) Discharge Disposition: HOME SELF-CARE
== END 2022-02-18 13:04 | disposition home or self-care (01) | DRG 638 ==
LOC: EC 14:25 → 3SCARD 19:32
PROVIDERS: ADMIT Family Medicine; ATTEND Family Medicine
DX: E11.10 Type 2 diabetes mellitus with ketoacidosis without coma (principal); E44.0 Moderate protein-calorie malnutrition; R64 Cachexia; Z68.1 Body mass index [BMI] 19.9 or less, adult; E87.1 Hypo-osmolality and hyponatremia; F11.20 Opioid dependence, uncomplicated; E83.42 Hypomagnesemia; E86.0 Dehydration; T50.906A Underdosing of unspecified drugs, medicaments and biological substances, initial encounter; Z91.128 Patient's intentional underdosing of medication regimen for other reason; I25.10 Atherosclerotic heart disease of native coronary artery without angina pectoris; F17.210 Nicotine dependence, cigarettes, uncomplicated; Z71.6 Tobacco abuse counseling; Z79.82 Long term (current) use of aspirin; Z79.84 Long term (current) use of oral hypoglycemic drugs; Z79.899 Other long term (current) drug therapy; Z95.1 Presence of aortocoronary bypass graft; Z81.8 Family history of other mental and behavioral disorders
CPT/HCPCS: 36415; 71046; 80051; 80053; 81001; 82009; 82565; 82803; 82947; 83735; 84100; 84520; 85025; 93005; 96365; 99291

== ENCOUNTER 2022-05-31 04:39 | Inpatient (IN) | payer MEDICARE ==
[2022-05-31 07:34] LABS: Basophils # (A) 0.1 k/uL (0-0.2); Basophils % (A) 1 %; Eosinophils # (A) 0.2 k/uL (0-0.7); Eosinophils % (A) 1 %; HGB 14.1 gm/dL (11.4-16.0); Lymphocytes # (A) 2.7 k/uL (1.0-4.8); Lymphocytes % (A) 21 %; MCH 32.1 pg (25.0-35.0); MCHC 35.2 g/dL (31.0-37.0); MCV 91.3 fL (80.0-100.0); Monocytes # (A) 0.6 k/uL (0-1.0); Monocytes % (A) 5 %; Neutrophils # (A) 9.3 k/uL (1.3-7.7); Neutrophils % (A) 71 %; Platelet Count 285 k/uL (150-450); RBC 4.38 m/uL (3.80-5.40); RDW 12.3 % (11.5-15.5); WBC 13.1 k/uL (3.8-10.6)
[2022-05-31 07:45] LABS: ALT 10 U/L (4-34); AST 14 U/L (14-36); African American GFR (CKD) >90 (>60 ml/min/1.73 sqM); Albumin 4.2 g/dL (3.5-5.0); Alkaline Phosphatase 79 U/L (38-126); Anion Gap 10 mmol/L; Blood Urea Nitrogen 19 mg/dL (7-17); Calcium 8.8 mg/dL (8.4-10.2); Carbon Dioxide 31 mmol/L (22-30); Chloride 98 mmol/L (98-107); Glucose 190 mg/dL (74-99); Non-African American GFR(CKD) >90 (>60 ml/min/1.73 sqM); Potassium 4.3 mmol/L (3.5-5.1); Sodium 139 mmol/L (137-145); Total Bilirubin 0.4 mg/dL (0.2-1.3); Total Protein 6.6 g/dL (6.3-8.2)
[2022-05-31 08:05] LABS: Appearance,Urine Clear (Clear); Bacteria,Urine Many /hpf; Bilirubin,Urine Negative (Negative); Blood,Urine Negative (Negative); Color,Urine Yellow; Glucose,Urine (UA) Negative (Negative); Ketones,Urine Negative (Negative); Leukocyte Esterase,Urine Large (Negative); Mucus,Urine Occasional /hpf; Nitrite,Urine Negative (Negative); PH, Urine 5.5 (5.0-8.0); Protein,Urine 1+ (Negative); RBC,Urine 4 /hpf (0-5); Specific Gravity,Urine 1.019 (1.001-1.035); Squamous Epithelial Cell,Urine <1 /hpf (0-4); WBC,Urine 61 /hpf (0-5)
--- NOTE | 2022-05-31 08:28 | ED ---
Recheck HPI - General Chief Complaint: Recheck/Abnormal Lab/Rx Stated Complaint: Blood Sugar problems Time Seen by Provider: 05/31/22 08:17 Source: patient, family, RN notes reviewed Mode of arrival: ambulatory Limitations: no limitations - History of Present Illness Initial Comments: This is a 62-year-old female who presents to the emergency department for episodes of low blood sugar. States that since yesterday, her sugar has been going as low as 50. She has been eating a lot of sugar and doing her best to get it up, however she states that it continues to decrease. She has never had this problem before, and states that is often stays between 100-200. Additionally, she reports a week of worsening abdominal pain, which is primarily in the bilateral lower quadrants. Yesterday, she began to vomit. Denies any fevers or chills. Does report 3 days of constipation, however she is still passing gas. Denies any fevers, chills, sore throat, cough, dyspnea, chest pain, palpitations, diarrhea, back pain, or headaches. MD Complaint: other (hypoglycemia) Onset/Timin -: days(s) - Related Data Home Medications Medication Instructions Recorded Confirmed Aspirin EC [Ecotrin Low Dose] 81 mg PO DAILY 02/15/22 05/31/22 DULoxetine HCL [Cymbalta] 30 mg PO DAILY 02/15/22 05/31/22 Simvastatin [Zocor] 80 mg PO DAILY 02/15/22 05/31/22 diazePAM 2 mg PO TID PRN 02/15/22 05/31/22 lisinopriL [Zestril] 5 mg PO DAILY 02/15/22 05/31/22 metFORMIN HCL 1,000 mg PO BID@0900,2100 02/15/22 05/31/22 INSULIN ASPART (NovoLOG) [NovoLOG See Protocol SQ TID-W/MEALS PRN 05/31/22 05/31/22 (formulary)] Insulin Detemir [Levemir Flextouch 16 units SQ DAILY 05/31/22 05/31/22 Pen] oxyCODONE-APAP 7.5-325MG [Percocet 1 tab PO QID PRN 05/31/22 05/31/22 7.5-325 mg] Allergies Allergy/AdvReac Type Severity Reaction Status Date / Time No Known Allergies Allergy Verified 05/31/22 10:51 Review of Systems ROS Statement: Those systems with pertinent positive or pertinent negative responses have been documented in the HPI. ROS Other: All systems not noted in ROS Statement are negative. Past Medical History Past Medical History: Diabetes Mellitus Additional Past Medical History / Comment(s): CAD. 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 History of Any Multi-Drug Resistant Organisms: None Reported Past Surgical History: Coronary Bypass/CABG Past Psychological History: No Psychological Hx Reported Smoking Status: Current every day smoker Past Alcohol Use History: None Reported Past Drug Use History: None Reported General Exam Limitations: no limitations General appearance: alert, in no apparent distress Head exam: Present: atraumatic, normocephalic, normal inspection Respiratory exam: Present: normal lung sounds bilaterally. Absent: respiratory distress, wheezes, rales, rhonchi, stridor Cardiovascular Exam: Present: regular rate, normal rhythm, normal heart sounds. Absent: systolic murmur, diastolic murmur, rubs, gallop, clicks GI/Abdominal exam: Present: soft, tenderness (RLQ and LLQ), normal bowel sounds. Absent: distended, guarding, rebound, rigid Neurological exam: Present: alert, oriented X3, CN II-XII intact Psychiatric exam: Present: agitated Skin exam: Present: warm, dry, intact, normal color. Absent: rash Course Vital Signs 05/31/22 05:01 Temperature 98.4 F Pulse Rate 94 Respiratory 16 Rate Blood Pressure 113/71 O2 Sat by Pulse 96 Oximetry Medical Decision Making - Medical Decision Making This is a 62-year-old female who presents to the emergency department for hypoglycemic episodes. Lab work does reveal leukocytosis of 13.1. Sugar is currently elevated at 190. Given the leukocytosis with associated abdominal p ain, computed tomography scan of the abdomen and pelvis was obtained. This revealed prominent fluid-filled small bowel loops suggestive of an ileus. Given the UTI with associated ileus, patient will be admitted to medicine for further management. She was given a dose of ceftriaxone for the UTI and started on maintenance fluids. General surgery consulted regarding the ileus. She is on a regular dose of Percocet, 10 mg, which may be contributing to the issue. This case was discussed in detail with the attending ED physician. Presentation, findings, and treatment plan discussed in detail as well. - Lab Data Result diagrams: 05/31/22 06:57 05/31/22 06:57 Lab Results 05/31/22 05/31/22 05/31/22 Range/Units 06:57 06:57 06:57 WBC 13.1 H (3.8-10.6) k/uL RBC 4.38 (3.80-5.40) m/uL Hgb 14.1 (11.4-16.0) gm/dL Hct 40.0 (34.0-46.0) % MCV 91.3 (80.0-100.0) fL MCH 32.1 (25.0-35.0) pg MCHC 35.2 (31.0-37.0) g/dL RDW 12.3 (11.5-15.5) % Plt Count 285 (150-450) k/uL MPV 8.0 Neutrophils % 71 % Lymphocytes % 21 % Monocytes % 5 % Eosinophils % 1 % Basophils % 1 % Neutrophils # 9.3 H (1.3-7.7) k/uL Lymphocytes # 2.7 (1.0-4.8) k/uL Monocytes # 0.6 (0-1.0) k/uL Eosinophils # 0.2 (0-0.7) k/uL Basophils # 0.1 (0-0.2) k/uL Sodium 139 (137-145) mmol/L Potassium 4.3 (3.5-5.1) mmol/L Chloride 98 (98-107) mmol/L Carbon Dioxide 31 H (22-30) mmol/L Anion Gap 10 mmol/L BUN 19 H (7-17) mg/dL Creatinine 0.42 L (0.52-1.04) mg/dL Est GFR (CKD-EPI)AfAm >90 (>60 ml/min/1.73 sqM) Est GFR (CKD-EPI)NonAf >90 (>60 ml/min/1.73 sqM) Glucose 190 H (74-99) mg/dL Calcium 8.8 (8.4-10.2) mg/dL Total Bilirubin 0.4 (0.2-1.3) mg/dL AST 14 (14-36) U/L ALT 10 (4-34) U/L Alkaline Phosphatase 79 (38-126) U/L Troponin I (0.000-0.034) ng/mL Total Protein 6.6 (6.3-8.2) g/dL Albumin 4.2 (3.5-5.0) g/dL TSH 2.050 (0.465-4.680) mIU/L Urine Color Urine Appearance (Clear) Urine pH (5.0-8.0) Ur Specific Hope (1.001-1.035) Urine Protein (Negative) Urine Glucose (UA) (Negative) Urine Ketones (Negative) Urine Blood (Negative) Urine Nitrite (Negative) Urine Bilirubin (Negative) Urine Urobilinogen (<2.0) mg/dL Ur Leukocyte Esterase (Negative) Urine RBC (0-5) /hpf Urine WBC (0-5) /hpf Ur Squamous Epith Cells (0-4) /hpf Urine Bacteria (None) /hpf Urine Mucus (None) /hpf Coronavirus (PCR) (Not Detectd) Influenza Type A RNA Not Detected (Not Detectd) Influenza Type B (PCR) Not Detected (Not Detectd) 05/31/22 05/31/22 05/31/22 Range/Units 06:57 07:08 08:51 WBC (3.8-10.6) k/uL RBC (3.80-5.40) m/uL Hgb (11.4-16.0) gm/dL Hct (34.0-46.0) % MCV (80.0-100.0) fL MCH (25.0-35.0) pg MCHC (31.0-37.0) g/dL RDW (11.5-15.5) % Plt Count (150-450) k/uL MPV Neutrophils % % Lymphocytes % % Monocytes % % Eosinophils % % Basophils % % Neutrophils # (1.3-7.7) k/uL Lymphocytes # (1.0-4.8) k/uL Monocytes # (0-1.0) k/uL Eosinophils # (0-0.7) k/uL Basophils # (0-0.2) k/uL Sodium (137-145) mmol/L Potassium (3.5-5.1) mmol/L Chloride (98-107) mmol/L Carbon Dioxide (22-30) mmol/L Anion Gap mmol/L BUN (7-17) mg/dL Creatinine (0.52-1.04) mg/dL Est GFR (CKD-EPI)AfAm (>60 ml/min/1.73 sqM) Est GFR (CKD-EPI)NonAf (>60 ml/min/1.73 sqM) Glucose (74-99) mg/dL Calcium (8.4-10.2) mg/dL Total Bilirubin (0.2-1.3) mg/dL AST (14-36) U/L ALT (4-34) U/L Alkaline Phosphatase (38-126) U/L Troponin I <0.012 (0.000-0.034) ng/mL Total Protein (6.3-8.2) g/dL Albumin (3.5-5.0) g/dL TSH (0.465-4.680) mIU/L Urine Color Yellow Urine Appearance Clear (Clear) Urine pH 5.5 (5.0-8.0) Ur Specific Hope 1.019 (1.001-1.035) Urine Protein 1+ H (Negative) Urine Glucose (UA) Negative (Negative) Urine Ketones Negative (Negative) Urine Blood Negative (Negative) Urine Nitrite Negative (Negative) Urine Bilirubin Negative (Negative) Urine Urobilinogen 2.0 (<2.0) mg/dL Ur Leukocyte Esterase Large H (Negative) Urine RBC 4 (0-5) /hpf Urine WBC 61 H (0-5) /hpf Ur Squamous Epith Cells <1 (0-4) /hpf Urine Bacteria Many H (None) /hpf Urine Mucus Occasional H (None) /hpf Coronavirus (PCR) Not Detected (Not Detectd) Influenza Type A RNA (Not Detectd) Influenza Type B (PCR) (Not Detectd) - EKG Data EKG Comments: Sinus rhythm. Normal axis. Ventricular rate 76 bpm, NH interval 125 ms, QRS duration 89 ms, QTC 421 ms. - Radiology Data Radiology results: report reviewed, image reviewed Disposition Clinical Impression: UTI (urinary tract infection), Ileus Disposition: ADMITTED IP TO THIS HOSP
[2022-05-31] MEDS ORDERED: oxyCODONE-APAP 10-325MG 1 EACH TAB PO ONE (09:08)
[2022-05-31] MEDS ORDERED: diazePAM 2 MG TAB PO STA (09:08)
[2022-05-31] MEDS ORDERED: cefTRIAXone IN SWFI 1,000 MG/10 ML SYRINGE IVP STA (09:27)
--- NOTE | 2022-05-31 09:55 | CT ---
EXAMINATION TYPE: CT abdomen pelvis w con DATE OF EXAM: 05/31/2022 COMPARISON: NONE HISTORY: 62-year-old female Lower abdominal pain TECHNIQUE: Contiguous axial scanning of the abdomen and pelvis following administration of 100 ml Iso gabriela 300 IV contrast. Delayed images through the kidneys and coronal/sagittal reconstructions perform ed. CT DLP: 538.7 mGycm Automated exposure control for dose reduction was used. FINDINGS: The heart is normal size without pericardial effusion. Underlying emphysematous change in the lower l ungs. Some hazy peripheral basilar groundglass probably generalized atelectasis. Interstitial pneumon itis is also possible. No pleural effusion. No focal liver lesion or biliary ductal dilatation. Portal venous system is patent. Gallbladder, spleen, and mildly atrophic pancreas show no gross abnormality. Left greater than right thickening of the bilateral adrenal glands without discrete nodularity; there may be some underlying adrenal hyperplasia. A couple small benign cortical cysts within the kidneys measuring up to 5 mm on the right and 1.1 cm on the left. 6 mm nonobstructive calculus lower pole right kidney. Focal cortical loss involving the lower pole of the left kidney may be due to separate supply by an a ccessory branch. Patient status post aortobifemoral bypass which remains patent though there is moder ate focal narrowing at the right-sided distal anastomosis. No dilated small bowel, free fluid, or free air. Prominent fluid-filled small bowel loops within the mid to lower abdomen and pelvis. No mesenteric or retroperitoneal lymphadenopathy. Normal appendix. Mild to moderate stool. Mild mid sigmoid diverticulosis. No pericolonic inflammatory change. Bladder is nondistended. Small pelvic phleboliths. Uterus anteverted. The region of both ovaries is v isualized. No abnormal fluid collection in the pelvis or pelvic lymphadenopathy. Bones: Moderate to advanced degenerative change at both hips. Facet arthropathy mid to lower lumbar s pine. Osteopenia. IMPRESSION: 1. PROMINENT FLUID-FILLED SMALL BOWEL LOOPS IN THE MID TO LOWER ABDOMEN AND PELVIS MAY BE TRANSIENT O R COULD REPRESENT A REGIONAL ILEUS OR NONSPECIFIC ENTERITIS. 2. MILD TO MODERATE STOOL BURDEN. MID SIGMOID DIVERTICULOSIS. NO EVIDENCE FOR ACUTE DIVERTICULITIS. 3. A 6 MM NONOBSTRUCTIVE RIGHT RENAL CALCULUS. 4. STATUS POST AORTOBIFEMORAL BYPASS GRAFT WHICH REMAINS PATENT THOUGH THERE IS MODERATE NARROWING AT THE RIGHT-SIDED DISTAL ANASTOMOSIS AT THE LEVEL OF THE IC DESIGN ENGINEER. THE LOWER POLE OF THE LEFT KIDNEY IS FOC ALLY ATRETIC, POSSIBLY DUE TO SACRIFICE OF AN ACCESSORY BRANCH OF THE LEFT RENAL ARTERY.
[2022-05-31] MEDS ORDERED: SODIUM CHLORIDE 0.9% 1,000 ML IV STA (10:13)
[2022-05-31] MEDS ORDERED: NALOXONE 0.4 MG/ML 1 ML VIAL IV PRN (10:35)
[2022-05-31] MEDS ORDERED: ONDANSETRON 4 MG/2 ML VIAL IVP PRN (10:35)
[2022-05-31] MEDS ORDERED: KETOROLAC 15 MG/ML 1 ML VIAL IVP PRN (10:35)
[2022-05-31] MEDS ORDERED: IBUPROFEN 400 MG TAB PO PRN (10:35)
[2022-05-31] MEDS ORDERED: ACETAMINOPHEN TAB 325 MG TAB PO PRN (10:35)
[2022-05-31] MEDS ORDERED: ASPIRIN 81 MG PO STA (11:00)
[2022-05-31] MEDS ORDERED: metFORMIN 500 MG TAB PO STA (11:00)
[2022-05-31] MEDS: oxyCODONE-APAP 7.5-325MG 1 EACH TAB PO PRN ×2 (15:38→20:40)
[2022-05-31] MEDS: diazePAM 2 MG TAB PO PRN (15:38)
--- NOTE | 2022-05-31 16:02 | P.GSCN ---
History of Present Illness Consult date: 05/31/22 History of present illness: CHIEF COMPLAINT: Low blood sugar Reason for consult ileus HISTORY OF PRESENT ILLNESS: This is a 62-year-old female who presented to the emergency room due to low blood sugar. She's also had worsening abdominal pain for about one week. She does report a 3 day history of constipation. She is having flatus. Initially she had diffuse abdominal pain with bloating. She denies any nausea or vomiting. She reports feeling hungry. Her computed tomography scan had shown concerns for possible ileus. And therefore surgical consult was placed. Patient is afebrile. She did have evidence of a UTI. Patient seen and examined with Dr. dutta PAST MEDICAL HISTORY: Diabetes mellitus, coronary artery disease PAST SURGICAL HISTORY: CABG MEDICATIONS: See list. ALLERGIES: See list. SOCIAL HISTORY: No illicit drug use. REVIEW OF SYSTEMS: CONSTITUTIONAL: Denies fever or chills. HEENT: Denies blurred vision, vision changes, or eye pain. Denies hemoptysis CARDIOVASCULAR: Denies chest pain or pressure. RESPIRATORY: No shortness of breath. GASTROINTESTINAL: See HPI for pertinent findings HEMATOLOGIC: Denies bleeding disorders. GENITOURINARY: Denies any blood in urine or increased urinary frequency. SKIN: Denies pruitis. Denies rash. PHYSICAL EXAM: VITAL SIGNS: Reviewed GENERAL: Well-developed in no acute distress. HEENT: No sclera icterus. Extraocular movements grossly intact. Moist buccal mucosa. Head is atraumatic, normocephalic. No nasal drainage. ABDOMEN: Soft. Nondistended. Nontender. Old healed Midline incisional scar noted NEUROLOGIC: Alert and oriented. Cranial nerves II through XII grossly intact. LABORATORY DATA: WBC 13.1 HGB 14.1 platelets 285 Sodium is 139 potassium is 4.3 creatinine 0.42 Glucose 190 Urinalysis positive for infection COVID-19 not detected influenza not detected IMAGING: Computed tomography scan abdomen and pelvis showing prominent fluid filled small bowel loops in the mid to lower abdomen and pelvis may be transient or could represent a regional ileus or nonspecific enteritis. Mild to moderate stool burden. Mid sigmoid diverticulosis. No evidence for acute diverticulitis. A 6 mm nonobstructive right renal calculus. Status post aortal femoral bypass graft which remains patent though there is a moderate narrowing at the right sided distal anastomosis at the level of FERTILIZER MIXER. The lower pole of left kidney is focally atretic, possibly due to sacrifice of the sensory branch of the left renal artery per radiologist report ASSESSMENT: 1. Abdominal pain 2. Possible ileus likely secondary to UTI 3. UTI 4. Chronic narcotic use PLAN: -No surgical intervention planned -Start full liquid diet -Continue to treat UTI with antibiotics -Continue IV fluids -Add stool softener Physician Product Safety Compliance Leader note has been reviewed by physician. Signing provider agrees with the documented findings, assessment, and plan of care. Past Medical History Past Medical History: Diabetes Mellitus Additional Past Medical History / Comment(s): CAD. 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 History of Any Multi-Drug Resistant Organisms: None Reported Past Surgical History: Coronary Bypass/CABG Past Psychological History: No Psychological Hx Reported Smoking Status: Current every day smoker Past Alcohol Use History: None Reported Past Drug Use History: None Reported Medications and Allergies Home Medications Medication Instructions Recorded Confirmed Type Aspirin EC [Ecotrin Low Dose] 81 mg PO DAILY 02/15/22 05/31/22 History DULoxetine HCL [Cymbalta] 30 mg PO DAILY 02/15/22 05/31/22 History Simvastatin [Zocor] 80 mg PO DAILY 02/15/22 05/31/22 History diazePAM 2 mg PO TID PRN 02/15/22 05/31/22 History lisinopriL [Zestril] 5 mg PO DAILY 02/15/22 05/31/22 History metFORMIN HCL 1,000 mg PO BID@0900,2100 02/15/22 05/31/22 History INSULIN ASPART (NovoLOG) [NovoLOG See Protocol SQ TID-W/MEALS PRN 05/31/22 05/31/22 History (formulary)] Insulin Detemir [Levemir Flextouch 16 units SQ DAILY 05/31/22 05/31/22 History Pen] oxyCODONE-APAP 7.5-325MG [Percocet 1 tab PO QID PRN 05/31/22 05/31/22 History 7.5-325 mg] Allergies Allergy/AdvReac Type Severity Reaction Status Date / Time No Known Allergies Allergy Verified 05/31/22 10:51 Surgical - Exam Vital Signs Temp Pulse Resp BP Pulse Ox 98.4 F 94 16 113/71 96 05/31/22 05:01 05/31/22 05:01 05/31/22 05:01 05/31/22 05:01 05/31/22 05:01 Results - Labs 05/31/22 06:57 05/31/22 06:57 Abnormal Lab Results - Last 24 Hours (Table) 05/31/22 05/31/22 05/31/22 Range/Units 06:57 06:57 07:08 WBC 13.1 H (3.8-10.6) k/uL Neutrophils # 9.3 H (1.3-7.7) k/uL Carbon Dioxide 31 H (22-30) mmol/L BUN 19 H (7-17) mg/dL Creatinine 0.42 L (0.52-1.04) mg/dL Glucose 190 H (74-99) mg/dL Urine Protein 1+ H (Negative) Ur Leukocyte Esterase Large H (Negative) Urine WBC 61 H (0-5) /hpf Urine Bacteria Many H (None) /hpf Urine Mucus Occasional H (None) /hpf Microbiology - Last 24 Hours (Table) 05/31/22 07:08 Urine Culture - Preliminary Urine,Voided Diabetes panel 05/31/22 Range/Units 06:57 Sodium 139 (137-145) mmol/L Potassium 4.3 (3.5-5.1) mmol/L Chloride 98 (98-107) mmol/L Carbon Dioxide 31 H (22-30) mmol/L BUN 19 H (7-17) mg/dL Creatinine 0.42 L (0.52-1.04) mg/dL Glucose 190 H (74-99) mg/dL Calcium 8.8 (8.4-10.2) mg/dL AST 14 (14-36) U/L ALT 10 (4-34) U/L Alkaline Phosphatase 79 (38-126) U/L Total Protein 6.6 (6.3-8.2) g/dL Albumin 4.2 (3.5-5.0) g/dL Thyroid panel 05/31/22 Range/Units 06:57 TSH 2.050 (0.465-4.680) mIU/L Calcium panel 05/31/22 Range/Units 06:57 Calcium 8.8 (8.4-10.2) mg/dL Albumin 4.2 (3.5-5.0) g/dL Pituitary panel 05/31/22 Range/Units 06:57 Sodium 139 (137-145) mmol/L Potassium 4.3 (3.5-5.1) mmol/L Chloride 98 (98-107) mmol/L Carbon Dioxide 31 H (22-30) mmol/L BUN 19 H (7-17) mg/dL Creatinine 0.42 L (0.52-1.04) mg/dL Glucose 190 H (74-99) mg/dL Calcium 8.8 (8.4-10.2) mg/dL TSH 2.050 (0.465-4.680) mIU/L Adrenal panel 05/31/22 Range/Units 06:57 Sodium 139 (137-145) mmol/L Potassium 4.3 (3.5-5.1) mmol/L Chloride 98 (98-107) mmol/L Carbon Dioxide 31 H (22-30) mmol/L BUN 19 H (7-17) mg/dL Creatinine 0.42 L (0.52-1.04) mg/dL Glucose 190 H (74-99) mg/dL Calcium 8.8 (8.4-10.2) mg/dL Total Bilirubin 0.4 (0.2-1.3) mg/dL AST 14 (14-36) U/L ALT 10 (4-34) U/L Alkaline Phosphatase 79 (38-126) U/L Total Protein 6.6 (6.3-8.2) g/dL Albumin 4.2 (3.5-5.0) g/dL
[2022-05-31 16:42] LABS: Glucose,Whole Blood 120 mg/dL (70-110)
[2022-05-31] MEDS: polyethylene glycoL 3350 17 GM POWD.PACK PO SCH (17:24)
[2022-05-31] MEDS: DOCUSATE 100 MG CAP PO SCH (20:41)
[2022-05-31 21:42] LABS: Glucose,Whole Blood 126 mg/dL (70-110)
[2022-06-01] MEDS: oxyCODONE-APAP 7.5-325MG 1 EACH TAB PO PRN ×4 (02:21→20:47)
[2022-06-01] MEDS: diazePAM 2 MG TAB PO PRN ×4 (02:21→20:51)
[2022-06-01 07:40] LABS: Basophils # (A) 0.1 k/uL (0-0.2); Basophils % (A) 1 %; Eosinophils # (A) 0.2 k/uL (0-0.7); Eosinophils % (A) 3 %; HCT 37.9 % (34.0-46.0); HGB 13.1 gm/dL (11.4-16.0); Lymphocytes # (A) 3.2 k/uL (1.0-4.8); Lymphocytes % (A) 47 %; MCH 31.5 pg (25.0-35.0); MCHC 34.5 g/dL (31.0-37.0); MCV 91.3 fL (80.0-100.0); Mean Platelet Volume 7.7; Monocytes # (A) 0.3 k/uL (0-1.0); Monocytes % (A) 5 %; Neutrophils # (A) 2.9 k/uL (1.3-7.7); Neutrophils % (A) 43 %; Platelet Count 277 k/uL (150-450); RBC 4.15 m/uL (3.80-5.40); RDW 12.1 % (11.5-15.5); WBC 6.9 k/uL (3.8-10.6)
[2022-06-01] MEDS ORDERED: DEXTROSE 50% SYRINGE 50 ML IVP PRN ×4 (08:31→12:20)
[2022-06-01] MEDS: DOCUSATE 100 MG CAP PO SCH ×2 (08:36→20:51)
--- NOTE | 2022-06-01 08:36 | P.HPIM ---
History of Present Illness Chief Complaint: Diffuse abdominal pain. This is a 62-year-old white female with known history of opiate dependence sec ondary to DDD with poorly controlled diabetes who states she feels that her family has been hovering around her too much. She's had elements of poorly controlled blood sugar and we have been slowly weaning off of oxycodone. The patient was admitted secondary to severe abdominal pain. She states eating was provocative the cause significant pain. Evaluation showed regional enteritis versus ileus. Also element of UTI. Question also element of diabetic gastropathy. Appreciate surgical input. The patient is resting comfortably at this time. We are advancing diet. Review of Systems Constitutional: Denies chills, Denies fever Ears, nose, mouth and throat: Denies headache, Denies sore throat Cardiovascular: Denies chest pain, Denies shortness of breath Respiratory: Denies cough Gastrointestinal: Reports as per HPI, Reports abdominal pain, Reports nausea Genitourinary: Denies dysuria, Denies hematuria Musculoskeletal: Denies myalgias Past Medical History Past Medical History: Diabetes Mellitus Additional Past Medical History / Comment(s): CAD. 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 History of Any Multi-Drug Resistant Organisms: None Reported Past Surgical History: Coronary Bypass/CABG Past Anesthesia/Blood Transfusion Reactions: No Reported Reaction Past Psychological History: No Psychological Hx Reported Smoking Status: Current every day smoker Past Alcohol Use History: None Reported Past Drug Use History: None Reported Medications and Allergies Home Medications Medication Instructions Recorded Confirmed Type RX: Aspirin EC [Ecotrin Low Dose] 81 mg PO DAILY 02/15/22 05/31/22 History RX: DULoxetine HCL [Cymbalta] 30 mg PO DAILY 02/15/22 05/31/22 History RX: Simvastatin [Zocor] 80 mg PO DAILY 02/15/22 05/31/22 History RX: diazePAM 2 mg PO TID PRN 02/15/22 05/31/22 History RX: lisinopriL [Zestril] 5 mg PO DAILY 02/15/22 05/31/22 History RX: metFORMIN HCL 1,000 mg PO BID@0900,2100 02/15/22 05/31/22 History Insulin Detemir [Levemir Flextouch 16 units SQ DAILY 05/31/22 05/31/22 History Pen] RX: INSULIN ASPART (NovoLOG) See Protocol SQ TID-W/MEALS PRN 05/31/22 05/31/22 History [NovoLOG (formulary)] oxyCODONE-APAP 7.5-325MG [Percocet 1 tab PO QID PRN 05/31/22 05/31/22 History 7.5-325 mg] Allergies Allergy/AdvReac Type Severity Reaction Status Date / Time No Known Allergies Allergy Verified 05/31/22 10:51 Physical Exam Vitals: Vital Signs Temp Pulse Pulse Resp BP BP Pulse Ox 06/01/22 02:18 98.1 F 74 16 126/70 94 L 05/31/22 21:37 98.0 F 77 16 104/64 94 L 05/31/22 21:04 97.8 F 70 16 128/82 100 05/31/22 21:00 78 18 143/75 98 05/31/22 20:57 97.8 F 72 16 124/73 99 05/31/22 19:58 68 18 122/75 100 05/31/22 18:49 81 15 127/58 100 05/31/22 12:12 98.7 F 79 12 121/67 98 Intake and Output 05/31/22 06/01/22 06/01/22 22:59 06:59 14:59 Intake Total 598 Balance 598 Intake: Oral 598 Other: # Voids 3 Weight 45.359 kg - Constitutional General appearance: no acute distress - EENT Eyes: EOMI - Neck Neck: no lymphadenopathy - Respiratory Respiratory: bilateral: CTA - Cardiovascular Rhythm: regular Heart sounds: normal: S1, S2 Abnormal Heart Sounds: no S3 Gallop - Gastrointestinal General gastrointestinal: soft, no tenderness - Psychiatric Psychiatric: A&O x's 3 Results CBC & Chem 7: 06/01/22 07:19 05/31/22 06:57 Labs: Abnormal Lab Results - Last 24 Hours (Table) 05/31/22 05/31/22 05/31/22 Range/Units 07:08 11:46 16:40 POC Glucose (mg/dL) 120 H (70-110) mg/dL Hemoglobin A1c 9.6 H (0.0-6.0) % Urine Protein 1+ H (Negative) Ur Leukocyte Esterase Large H (Negative) Urine WBC 61 H (0-5) /hpf Urine Bacteria Many H (None) /hpf Urine Mucus Occasional H (None) /hpf 05/31/22 Range/Units 21:41 POC Glucose (mg/dL) 126 H (70-110) mg/dL Hemoglobin A1c (0.0-6.0) % Urine Protein (Negative) Ur Leukocyte Esterase (Negative) Urine WBC (0-5) /hpf Urine Bacteria (None) /hpf Urine Mucus (None) /hpf Microbiology - Last 24 Hours (Table) 05/31/22 07:08 Urine Culture - Preliminary Urine,Voided Thrombosis Risk Factor Assmnt - Choose All That Apply Any of the Below Risk Factors Present?: No Other Risk Factors: Yes Each Risk Factor Represents 2 Points: Age 61-74 years Thrombosis Risk Factor Assessment Total Risk Factor Score: 2 Thrombosis Risk Factor Assessment Level: Low Risk Assessment and Plan (1) Uncontrolled diabetes mellitus Current Visit: Yes Status: Acute Code(s): JKM1960 - SNOMED Code(s): 56980693 (2) Opiate dependence Current Visit: Yes Status: Acute Code(s): F11.20 - OPIOID DEPENDENCE, UNCOMPLICATED SNOMED Code(s): 92073721 (3) Ileus Current Visit: Yes Status: Acute Code(s): K56.7 - ILEUS, UNSPECIFIED SNOMED Code(s): 287978571 (4) UTI (urinary tract infection) Current Visit: Yes Status: Acute Code(s): N39.0 - URINARY TRACT INFECTION, SITE NOT SPECIFIED SNOMED Code(s): 04073334 Plan: Reconcile medications. Surgery has advanced diet. Check CBC and CMP in a.m. Sliding scale. The patient is DO NOT RESUSCITATE. See orders otherwise
[2022-06-01] MEDS: ATORVASTATIN 40 MG TAB PO SCH (08:37)
[2022-06-01] MEDS: lisinopriL 5 MG TAB PO SCH (08:37)
[2022-06-01] MEDS: polyethylene glycoL 3350 17 GM POWD.PACK PO SCH (08:37)
[2022-06-01] MEDS: DULoxetine HCL 30 MG CAPSULE.DR PO SCH (08:37)
[2022-06-01 11:48] LABS: Glucose,Whole Blood 424 mg/dL (70-110)
[2022-06-01] MEDS: INSULIN ASPART (NovoLOG) 100 UNIT/ML VIAL SQ SCH ×3 (12:37→20:51)
--- NOTE | 2022-06-01 14:02 | P.PN ---
Subjective Progress Note Date: 06/01/22 CHIEF COMPLAINT: Ileus HISTORY OF PRESENT ILLNESS: Patient being followed in regards to her ileus. She reports no abdominal pain. She is having a large amount of flatus. No bowel movement. Denies any nausea or vomiting. She is requesting more food. She is on antibiotics for UTI. White count has normalized from 13.1-6.9. Hemoglobin A1c 9.0. Hyperglycemia likely secondary to the full liquid diet. Patient seen and examined with Dr. dutta PHYSICAL EXAM: VITAL SIGNS: Reviewed. GENERAL: Well-developed in no acute distress. HEENT: No sclera icterus. Extraocular movements grossly intact. Moist buccal mucosa. Head is atraumatic, normocephalic. ABDOMEN: Soft. Nondistended. Nontender. NEUROLOGIC: Alert and oriented. Cranial nerves II through XII grossly intact. ASSESSMENT: 1. Ileus likely secondary to UTI 2. Chronic narcotic use PLAN: -Advance diet to carb consistent -No surgical intervention planned -Continue antibiotics for UTI -Continue stool softeners -Encouraged patient to ambulate Physician Gun Stock Maker note has been reviewed by physician. Signing provider agrees with the documented findings, assessment, and plan of care. Objective - Vital Signs Vital signs: Vital Signs Temp 98.0 F 06/01/22 08:43 Pulse 75 06/01/22 08:43 Resp 16 06/01/22 08:43 BP 134/71 06/01/22 08:43 Pulse Ox 93 L 06/01/22 08:43 FiO2 Intake & Output 05/31/22 06/01/22 06/01/22 18:59 06:59 18:59 Intake Total 838 Balance 838 Weight 45.359 kg Intake: Oral 838 Other: Voiding Method Toilet # Voids 3 - Labs CBC & Chem 7: 06/01/22 07:19 05/31/22 06:57 Labs: Abnormal Lab Results - Last 24 Hours (Table) 05/31/22 05/31/22 05/31/22 Range/Units 11:46 16:40 21:41 POC Glucose (mg/dL) 120 H 126 H (70-110) mg/dL Hemoglobin A1c 9.6 H (0.0-6.0) % 06/01/22 06/01/22 Range/Units 07:19 11:46 POC Glucose (mg/dL) 424 H (70-110) mg/dL Hemoglobin A1c 9.0 H (0.0-6.0) % Microbiology - Last 24 Hours (Table) 05/31/22 07:08 Urine Culture - Preliminary Urine,Voided
[2022-06-01 14:56] VITALS: BMI 16.1
[2022-06-01 16:38] LABS: Glucose,Whole Blood 397 mg/dL (70-110)
[2022-06-01 19:59] LABS: Glucose,Whole Blood 382 mg/dL (70-110)
[2022-06-02 02:33] VITALS: RESP 16
[2022-06-02] MEDS: oxyCODONE-APAP 7.5-325MG 1 EACH TAB PO PRN ×3 (02:35→14:20)
[2022-06-02] MEDS: diazePAM 2 MG TAB PO PRN ×3 (02:35→14:20)
[2022-06-02 06:04] LABS: Glucose,Whole Blood 348 mg/dL (70-110)
[2022-06-02] MEDS: INSULIN ASPART (NovoLOG) 100 UNIT/ML VIAL SQ SCH ×2 (06:47→12:11)
[2022-06-02 07:47] LABS: HGB 13.7 gm/dL (11.4-16.0); MCH 32.2 pg (25.0-35.0); MCHC 35.1 g/dL (31.0-37.0); MCV 91.6 fL (80.0-100.0); Mean Platelet Volume 7.4; Platelet Count 275 k/uL (150-450); RBC 4.26 m/uL (3.80-5.40); RDW 11.8 % (11.5-15.5)
[2022-06-02 08:00] LABS: ALT 15 U/L (4-34); AST 14 U/L (14-36); African American GFR (CKD) >90 (>60 ml/min/1.73 sqM); Albumin 3.9 g/dL (3.5-5.0); Alkaline Phosphatase 91 U/L (38-126); Anion Gap 10 mmol/L; Blood Urea Nitrogen 12 mg/dL (7-17); Calcium 8.5 mg/dL (8.4-10.2); Carbon Dioxide 27 mmol/L (22-30); Chloride 101 mmol/L (98-107); Glucose 349 mg/dL (74-99); Non-African American GFR(CKD) >90 (>60 ml/min/1.73 sqM); Potassium 4.3 mmol/L (3.5-5.1); Sodium 138 mmol/L (137-145); Total Bilirubin 0.4 mg/dL (0.2-1.3); Total Protein 6.1 g/dL (6.3-8.2)
[2022-06-02] MEDS: ATORVASTATIN 40 MG TAB PO SCH (08:35)
[2022-06-02] MEDS: polyethylene glycoL 3350 17 GM POWD.PACK PO SCH (08:35)
[2022-06-02] MEDS: lisinopriL 5 MG TAB PO SCH (08:35)
[2022-06-02] MEDS: DULoxetine HCL 30 MG CAPSULE.DR PO SCH (08:35)
[2022-06-02] MEDS: DOCUSATE 100 MG CAP PO SCH (08:35)
--- NOTE | 2022-06-02 08:43 | P.DS ---
Providers Date of admission: 05/31/22 10:35 Attending physician: Remington Zabala Consults: 05/31/22 10:35 Consult Physician Urgent Consulting Provider: Adriano Freeman Consult Reason/Comments: ileus Do you want consulting provider notified?: Yes Primary care physician: Remington Zabala [facility] Course: This is a 62-year-old female who presented to the ER originally with abdominal pain. Ileus found likely secondary to UTI. Patient denies any further abdominal pain. She is passing flatus. Diet was advanced starting last night for dinner and she is tolerating it well. Plan for discharge later today if she has a bowel movement. Will be discharged on Cipro for UTI. Patient seen and evaluated by nurse practitioner. Physician in agreement with plan. Patient Condition at Discharge: Stable Plan - Discharge Summary Discharge Rx Participant: No New Discharge Prescriptions: New Ciprofloxacin HCl [Cipro] 500 mg PO Q12HR 5 Days #10 tab Continue lisinopriL [Zestril] 5 mg PO DAILY diazePAM 2 mg PO TID PRN PRN Reason: Anxiety DULoxetine HCL [Cymbalta] 30 mg PO DAILY Aspirin EC [Ecotrin Low Dose] 81 mg PO DAILY metFORMIN HCL 1,000 mg PO BID@0900,2100 Simvastatin [Zocor] 80 mg PO DAILY oxyCODONE-APAP 7.5-325MG [Percocet 7.5-325 mg] 1 tab PO QID PRN PRN Reason: Pain INSULIN ASPART (NovoLOG) [NovoLOG (formulary)] See Protocol SQ TID-W/MEALS PRN PRN Reason: high blood sugar Insulin Detemir [Levemir Flextouch Pen] 16 units SQ DAILY Discharge Medication List Aspirin EC [Ecotrin Low Dose] 81 mg PO DAILY 02/15/22 [History] DULoxetine HCL [Cymbalta] 30 mg PO DAILY 02/15/22 [History] Simvastatin [Zocor] 80 mg PO DAILY 02/15/22 [History] diazePAM 2 mg PO TID PRN 02/15/22 [History] lisinopriL [Zestril] 5 mg PO DAILY 02/15/22 [History] metFORMIN HCL 1,000 mg PO BID@0900,2100 02/15/22 [History] INSULIN ASPART (NovoLOG) [NovoLOG (formulary)] See Protocol SQ TID-W/MEALS PRN 05/31/22 [History] Insulin Detemir [Levemir Flextouch Pen] 16 units SQ DAILY 05/31/22 [History] oxyCODONE-APAP 7.5-325MG [Percocet 7.5-325 mg] 1 tab PO QID PRN 05/31/22 [History] Ciprofloxacin HCl [Cipro] 500 mg PO Q12HR 5 Days #10 tab 06/02/22 [Rx] Follow up Appointment(s)/Referral(s): Remington Zabala MD [Primary Care Provider] - 3 Days Discharge Disposition: HOME SELF-CARE
--- NOTE | 2022-06-02 10:04 | P.PN ---
Subjective Progress Note Date: 06/02/22 CHIEF COMPLAINT: Ileus HISTORY OF PRESENT ILLNESS: Patient being followed in regards to her ileus. She reports no abdominal pain. She is having a large amount of flatus. No bowel movement. Denies any nausea or vomiting. She is tolerating regular diet. She is on antibiotics for UTI. WBC 8.0 Patient seen and examined with Dr. dtuta PHYSICAL EXAM: VITAL SIGNS: Reviewed. GENERAL: Well-developed in no acute distress. HEENT: No sclera icterus. Extraocular movements grossly intact. Moist buccal mucosa. Head is atraumatic, normocephalic. ABDOMEN: Soft. Nondistended. Nontender. NEUROLOGIC: Alert and oriented. Cranial nerves II through XII grossly intact. ASSESSMENT: 1. Ileus likely secondary to UTI 2. Chronic narcotic use PLAN: -Patient can be discharged from surgical standpoint -continue carb consistent diet -No surgical intervention planned -Continue antibiotics for UTI -Continue stool softeners -Encouraged patient to ambulate Physician Supervisor Gear Repair note has been reviewed by physician. Signing provider agrees with the documented findings, assessment, and plan of care. Objective - Vital Signs Vital signs: Vital Signs Temp 97.8 F 06/01/22 20:05 Pulse 79 06/02/22 02:32 Resp 16 06/02/22 02:32 BP 112/54 06/02/22 02:32 Pulse Ox 94 L 06/02/22 02:32 FiO2 Intake & Output 06/01/22 06/02/22 06/02/22 18:59 06:59 18:59 Intake Total 1378 118 Balance 1378 118 Weight 45.359 kg Intake: Oral 1378 118 Other: Voiding Method Toilet # Voids 1 2 - Labs CBC & Chem 7: 06/02/22 07:20 06/02/22 07:20 Labs: Abnormal Lab Results - Last 24 Hours (Table) 06/01/22 06/01/22 06/01/22 Range/Units 07:19 11:46 16:35 Creatinine (0.52-1.04) mg/dL Glucose (74-99) mg/dL POC Glucose (mg/dL) 424 H 397 H (70-110) mg/dL Hemoglobin A1c 9.0 H (0.0-6.0) % Total Protein (6.3-8.2) g/dL 1006/02/22 06/02/22 Range/Units 19:57 06:02 07:20 Creatinine 0.37 L (0.52-1.04) mg/dL Glucose 349 H (74-99) mg/dL POC Glucose (mg/dL) 382 H 348 H (70-110) mg/dL Hemoglobin A1c (0.0-6.0) % Total Protein 6.1 L (6.3-8.2) g/dL Microbiology - Last 24 Hours (Table) 05/31/22 07:08 Urine Culture - Preliminary Urine,Voided Gram Neg Bacilli
[2022-06-02 11:40] LABS: Glucose,Whole Blood 553 mg/dL (70-110)
[2022-06-02 13:40] VITALS: BP 127/63; PULSE 88; TEMP 98.2
== END 2022-06-02 14:33 | disposition home or self-care (01) | DRG 389 ==
LOC: EC 04:39 → 5NMEDONC 10:35 → 3SCARD 20:52
PROVIDERS: ADMIT Family Medicine; ATTEND Family Medicine
DX: K56.7 Ileus, unspecified (principal); F11.20 Opioid dependence, uncomplicated; N39.0 Urinary tract infection, site not specified; I25.10 Atherosclerotic heart disease of native coronary artery without angina pectoris; E11.65 Type 2 diabetes mellitus with hyperglycemia; K57.30 Diverticulosis of large intestine without perforation or abscess without bleeding; Z79.4 Long term (current) use of insulin; Z79.899 Other long term (current) drug therapy; Z20.822 Contact with and (suspected) exposure to COVID-19; F17.210 Nicotine dependence, cigarettes, uncomplicated; Z95.1 Presence of aortocoronary bypass graft; Z79.82 Long term (current) use of aspirin; Z79.84 Long term (current) use of oral hypoglycemic drugs; Z66 Do not resuscitate
CPT/HCPCS: 36415; 74177; 80053; 81001; 83036; 83525; 84443; 84484; 84681; 85025; 85027; 87077; 87086; 87186; 87502; 87635; 93005; 99285

== ENCOUNTER → 2022-06-16 | Outpatient (CLI) | payer MEDICARE ==
--- NOTE | 2022-06-16 08:18 | CT ---
EXAMINATION TYPE: CT hip RT wo con CT DLP: 296.7 mGycm, Automated exposure control for dose reduction was used. DATE OF EXAM: 06/16/2022 7:25 AM COMPARISON: CT abdomen and pelvis 05/31/2022. CLINICAL INDICATION:Female, 62 years old with history of M25.551 pain R hip; TECHNIQUE: Axial images were obtained of the right hip without the use of IV contrast. Additional co viktor and sagittal reformatted images and soft tissue and bone window were obtained for review. FINDINGS: Acute comminuted intratrochanteric fracture with minimal displacement of the right femur. M oderate to severe osteoarthritic changes of the right hip with joint space narrowing, acetabular scle rosis, and marginal osteophytosis. Foci of fat tracking along the anterior fascial planes. No sizable joint effusion. No joint dislocation. No focal muscular atrophy or edema is identified. No radiopaqu e foreign body identified. Partial visualization of aortobifemoral bypass graft. Nondilated bowel dem onstrated. Urinary bladder is underdistended which limits evaluation. Few pelvic phleboliths. IMPRESSION: 1. Acute comminuted minimally displaced right femur intratrochanteric fracture. 2. [id number] osteoarthritic change of the right hip. Findings called to Dr Jakub Gomez office at 8:15 AM on 06/16/2022.
== END | disposition home or self-care (01) ==
LOC: RADCTMAIN 07:04
PROVIDERS: ATTEND Orthopaedic Surgery
DX: S72.141A Displaced intertrochanteric fracture of right femur, initial encounter for closed fracture (principal); M16.11 Unilateral primary osteoarthritis, right hip

== ENCOUNTER 2022-06-20 07:06 | Inpatient (IN) | payer MEDICARE ==
[~2022-06-20 07:06] MED LIST: TRANEXAMIC ACID IN NACL,ISO-OS 1,000 MG in SALINE 1 100ML.BAG IVPB PRN
[2022-06-20 07:41] LABS: Glucose,Whole Blood 227 mg/dL (70-110)
[2022-06-20] MEDS ORDERED: HYDROmorphone 0.5 MG/0.5 ML SYRINGE IVP PRN ×3 (07:41→08:53)
[2022-06-20] MEDS ORDERED: DEXAMETHASONE SOD PHOSPHATE 4 MG/ML 1 ML VIAL IV ONE (07:41)
[2022-06-20] MEDS ORDERED: ONDANSETRON 4 MG/2 ML VIAL IVP ONE ×2 (07:41→11:07)
[2022-06-20] MEDS: LACTATED RINGERS 1,000 ML IV SCH (07:46)
[2022-06-20 08:34] LABS: HGB 11.7 gm/dL (11.4-16.0); MCH 32.2 pg (25.0-35.0); MCHC 35.6 g/dL (31.0-37.0); MCV 90.4 fL (80.0-100.0); Mean Platelet Volume 7.3; Platelet Count 442 k/uL (150-450); RBC 3.65 m/uL (3.80-5.40); RDW 12.8 % (11.5-15.5); WBC 8.9 k/uL (3.8-10.6)
[2022-06-20 08:44] LABS: African American GFR (CKD) >90 (>60 ml/min/1.73 sqM); Anion Gap 7 mmol/L; Blood Urea Nitrogen 11 mg/dL (7-17); Calcium 7.9 mg/dL (8.4-10.2); Carbon Dioxide 30 mmol/L (22-30); Chloride 102 mmol/L (98-107); Glucose 181 mg/dL (74-99); Non-African American GFR(CKD) >90 (>60 ml/min/1.73 sqM); Potassium 3.6 mmol/L (3.5-5.1); Sodium 139 mmol/L (137-145)
[2022-06-20] MEDS ORDERED: ONDANSETRON 4 MG/2 ML VIAL IVP PRN (08:53)
[2022-06-20] MEDS ORDERED: MAGNESIUM HYDROXIDE 2,400 MG/10 ML CUP PO PRN (08:53)
[2022-06-20] MEDS ORDERED: NALOXONE 0.4 MG/ML 1 ML VIAL IV PRN (08:53)
[2022-06-20] MEDS ORDERED: KETAMINE 10 MG/ML 20 ML VIAL ONE (09:00)
[2022-06-20] MEDS ORDERED: fentaNYL (PF) 50 MCG/ML 2 ML AMP ONE (09:00)
[2022-06-20] MEDS ORDERED: MIDAZOLAM 2 MG/2 ML VIAL ONE (09:00)
[2022-06-20] MEDS ORDERED: TRANEXAMIC ACID IN NACL,ISO-OS 1,000 MG/100 ML BAG ONE (09:00)
[2022-06-20] MEDS ORDERED: HYDROcodone/APAP 7.5-325MG 1 EACH TAB PO PRN ×2 (09:02)
[2022-06-20] MEDS ORDERED: ceFAZolin 1,000 MG in SODIUM CHLORIDE 0.9% 1,000 ML IRRIGATION ONE (09:29)
--- NOTE | 2022-06-20 10:00 | P.OP ---
Date of Procedure: 06/20/22 Preoperative Diagnosis: Intertrochanteric fracture right hip Postoperative Diagnosis: 4 part intratrochanteric fracture right hip Procedure(s) Performed: Close reduction and intramedullary hip screw right hip Implants: [employer] Intertan nail 125, 11.5 mm x 18 cm. [employer] Intertan integrated-interlocking lag screw, 90 mm lag screw, 85 mm compression screw. [employer] L-P screw, 5.0 mm x 32.5 mm. Anesthesia: spinal Surgeon: Jakub Gomez Facilities Specialist #1: Belkys Simms Estimated Blood Loss (ml): 100 Pathology: none sent Condition: stable Disposition: PACU Indications for Procedure: This is a 62-year-old female presented to my office after following the week prior with pain in her right hip. X-rays and CAT scan demonstrated an intertrochanteric fracture of her right hip. After discussing the surgical nonsurgical treatment options with her and her family at length recommended a close reduction and intramedullary hip screw fixation of her right hip. Inf ormed consent was obtained. Operative Findings: The operative findings are consistent with a minimally displaced 4 part intertrochanteric fracture of the right hip. Description of Procedure: The patient was seen in the preoperative area, consent was reviewed, and the operative site was marked with a skin marker. The surgical procedure was discussed at length with both the patient and the family at the bedside. All questions were answered to the best of my ability. The patient was brought to the operating room and placed on the fracture table. Anesthesia was administered by the anesthesia department. 1 g of Ancef were administered intravenously. The patient was placed supine on the fracture table with the fractured extremity in traction boot. The other extremity was placed in a well leg fisher and the bony prominences were well padded. A universal timeout was then performed which confirmed the patient's name, surgical site, ALLERGIES, and consent. Fracture reduction was performed with a traction and abduction maneuver which was confirmed with fluoroscopy, both AP and lateral views.. After reduction was performed, the extremity was then prepped with ChloraPrep solution and draped in the usual sterile fashion. Utilizing fluoroscopy to identify the tip of the greater trochanter, a 3 cm longitudinal incision was made just proximal to the greater trochanter. Incision was carried through the fascia to the tip of the greater trochanter. Utilizing a curved awl, the entry point was created at the tip of the greater trochanter and centralized in the AP and lateral planes. These locations were confirmed by fluoroscopy. A guidewire was then inserted down the medullary canal. Sequentially reaming of the femur was performed to 13 mm distally and 17 mm proximally with the channel reamer. After reaming, appropriate size nail was inserted over the guidewire. The nail was inserted to the appropriate depth and the guidewire was removed. Placement of the jose a was confirmed with both AP and lateral fluoroscopic views. The lag screw drill sleeve was placed in the jig and a small skin incision was made on the lateral aspect of the leg and the lag screw drill sleeve was locked into the guide. The 3.2 mm guide pin sleeve was inserted through the lag screw drill sleeve down to bone. A 3.2 mm distally threaded guidewire was inserted through the guide pin sleeve. The guidewire was inserted in the desired position in the femoral head, both anterior and posterior. The lag screw length cage was inserted over the guidepin to the back of the lag screw drill sleeve. Lag screw length was then measured from the cage. Next, the 7.0 mm compression screw starter drill was inserted in the lag screw drill sleeve beneath the guidepin. The compression screw starter drill was advanced under power until it abutted the back and of the lag screw drill sleeve. The 7.0 mm compression screw drill was inserted through the lag screw drill sleeve into the hole created by the compression screw starter drill. This was advanced under fluoroscopy to a depth 5 mm less and the measurement taken for the guidepin. The compression screw drill was removed and the antirotation bar was inserted into the same hole. The 3.2 mm guide pin sleeve was then removed from the drill guide. The lag screw drill was then inserted to a depth that was measured by the lag screw gauge. This was done under fluoroscopy. The lag screw was inserted over the guidewire to the appropriate depth using fluoroscopy. Traction was then released. The antirotation bar was then removed and the compression screw was advanced through the lag screw drill sleeve beneath the lag screw. This was advanced to the appropriate compression was achieved. The proximal drill guide was then removed and the distal drill guide was then inserted in the jig. Skin incision was made down to bone and the distal drill guide was then placed. Distal hole was then drilled with a 4.0 mm drill and measured to the appropriate depth. Distal screw was then placed. The entire assembly was then removed and final fluoroscopic x-rays were obtained. The wounds were then irrigated copiously with saline solution. Fascia was closed with 0-Vicryl. Subcutaneous tissues were closed with 2-0 Vicryl and the skin was closed with rosmery. Sterile dressings were applied. The patient was transported to the recovery room in stable condition. The culture media laboratory assistant NINA Lin was required due the complexity of surgery the need for skilled administrative assistant office manager for positioning draping retraction and fracture reduction.
[2022-06-20] MEDS ORDERED: HYDROmorphone 0.5 MG/0.5 ML SYRINGE IVP ONE ×2 (11:01→11:26)
--- NOTE | 2022-06-20 11:20 | XR ---
EXAMINATION TYPE: XR Hip Limited 1 view RT DATE OF EXAM: 06/20/2022 Comparison: None Clinical History: 62-year-old female, Status post hip surgery, assess surgical alignment Findings: Image shows placement of antegrade intramedullary nail with hip screw fixation proximal right femur. Lateral skin rosmery. Scattered soft tissue air related to recent operation. Mild degenerative change at the right hip with prominent marginal spurring. Alignment grossly anatomic. Impression: Uncomplicated postoperative appearance of the internal fixation proximal right femur.
--- NOTE | 2022-06-20 11:21 | FL ---
EXAMINATION TYPE: FL guidance operating room, XR Hip Complete RT DATE OF EXAM: 06/20/2022 COMPARISON: NONE HISTORY: 62-year-old female intramedullary screw right hip FINDINGS: 2 intraoperative images demonstrating proximal right femur fixation. FLUOROSCOPY Fluoroscopy time of 30 seconds was used during proximal right femur internal fixation. 2 image/s doc ument/s the procedure. IMPRESSION: Intraoperative fluoroscopy as above.
[2022-06-20] MEDS ORDERED: diphenhydrAMINE 50 MG/ML 1 ML VIAL IVP ONE (11:30)
[2022-06-20 11:31] LABS: Glucose,Whole Blood 182 mg/dL (70-110)
[2022-06-20] MEDS: oxyCODONE-APAP 7.5-325MG 1 EACH TAB PO PRN ×2 (12:01→18:17)
[2022-06-20] MEDS ORDERED: SODIUM CHLORIDE 0.9% 1,000 ML IV ONE (12:10)
[2022-06-20] MEDS: HYDROmorphone 1 MG/ML 1 ML SYRINGE IVP PRN ×3 (13:00→20:38)
[2022-06-20 14:56] LABS: Glucose,Whole Blood 235 mg/dL (70-110)
[2022-06-20] MEDS ORDERED: INSULIN ASPART (NovoLOG) 100 UNIT/ML VIAL SQ ONE (15:10)
[2022-06-20] MEDS ORDERED: oxyCODONE-APAP 7.5-325MG 1 EACH TAB PO ONE ×2 (15:22)
[2022-06-20] MEDS: SODIUM CHLORIDE 0.9% 1,000 ML IV SCH (17:18)
[2022-06-20] MEDS: diazePAM 2 MG TAB PO PRN (18:17)
[2022-06-20] MEDS: SENNOSIDES-DOCUSATE SODIUM 1 EACH TAB PO SCH (20:38)
[2022-06-20] MEDS: APIXABAN 2.5 MG TABLET PO SCH (20:38)
[2022-06-20 20:58] LABS: Glucose,Whole Blood 375 mg/dL (70-110)
[2022-06-20] MEDS ORDERED: SENNOSIDES-DOCUSATE SODIUM 1 EACH TAB PO SCH (21:00)
[2022-06-21] MEDS: oxyCODONE-APAP 7.5-325MG 1 EACH TAB PO PRN ×4 (00:01→22:24)
[2022-06-21] MEDS: SODIUM CHLORIDE 0.9% 1,000 ML IV SCH ×2 (01:58→16:12)
[2022-06-21] MEDS: HYDROmorphone 1 MG/ML 1 ML SYRINGE IVP PRN ×5 (04:27→21:29)
[2022-06-21] MEDS: diazePAM 2 MG TAB PO PRN ×3 (04:27→20:10)
[2022-06-21] MEDS ORDERED: DEXTROSE 50% SYRINGE 50 ML IVP PRN ×2 (08:09)
--- NOTE | 2022-06-21 08:13 | P.CONS ---
History of Present Illness - Reason for Consult Consult date: 06/28/22 Medical management Requesting physician: Jakub Gomez - Chief Complaint Medical management for right intratrochanteric hip fracture - History of Present Illness This 62-year-old white female fell last week and stayed home until she couldn't take the pain anymore. She has an underlying history of DJD of the lumbar spine diabetes which has been poorly controlled and history of depression. She is postop day #1 for hip fracture and we are consulted for medical management. She states pain is still somewhat severe. No fever or chills no voiding difficulties. Numbness or tingling Review of Systems Constitutional: Denies chills, Denies fever Eyes: denies blurred vision, denies pain Ears, nose, mouth and throat: Denies headache, Denies sore throat Cardiovascular: Denies chest pain, Denies shortness of breath Respiratory: Denies cough Gastrointestinal: Denies abdominal pain, Denies diarrhea, Denies nausea, Denies vomiting Past Medical History Past Medical History: Coronary Artery Disease (CAD), Diabetes Mellitus, Hyperlipidemia, Hypertension, Memory Impairment Additional Past Medical History / Comment(s): CAD. 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- huge keisha removed rt leg ( per daughter), arthritis generalized.neuropathy in her. feet. recent admit for UTI and Ileus. fell several times at [facility] per.daughter History of Any Multi-Drug Resistant Organisms: None Reported Past Surgical History: Coronary Bypass/CABG Additional Past Surgical History / Comment(s): could not use her vein for bypass Past Anesthesia/Blood Transfusion Reactions: No Reported Reaction Additional Past Anesthesia/Blood Transfusion Reaction / Comm: no blood transfusions Past Psychological History: Depression Smoking Status: Current every day smoker Past Alcohol Use History: None Reported Additional Past Alcohol Use History / Comment(s): smokes 2ppd her whole life Past Drug Use History: None Reported - Past Family History Mother Family Medical History: Cancer, Diabetes Mellitus, Hypertension Father Family Medical History: Cancer, Diabetes Mellitus, Hypertension Medications and Allergies Home Medications Medication Instructions Recorded Confirmed Type Aspirin EC [Ecotrin Low Dose] 81 mg PO DAILY 02/15/22 06/20/22 History DULoxetine HCL [Cymbalta] 30 mg PO DAILY 02/15/22 06/20/22 History Simvastatin [Zocor] 80 mg PO DAILY 02/15/22 06/20/22 History diazePAM 2 mg PO TID PRN 02/15/22 06/20/22 History lisinopriL [Zestril] 5 mg PO DAILY 02/15/22 06/20/22 History metFORMIN HCL 1,000 mg PO BID@0900,2100 02/15/22 06/20/22 History INSULIN ASPART (NovoLOG) [NovoLOG See Protocol SQ TID-W/MEALS PRN 05/31/22 06/20/22 History (formulary)] Insulin Detemir [Levemir Flextouch 16 units SQ DAILY 05/31/22 06/20/22 History Pen] oxyCODONE-APAP 7.5-325MG [Percocet 1 tab PO QID PRN 05/31/22 06/20/22 History 7.5-325 mg] Ciprofloxacin HCl [Cipro] 500 mg PO Q12HR 5 Days #10 tab 06/02/22 06/20/22 Rx Apixaban [Eliquis] 2.5 mg PO BID 35 Days #70 tab 06/20/22 Rx Sennosides [Senokot] 2 tab PO DAILY PRN #60 tablet 06/20/22 Rx Allergies Allergy/AdvReac Type Severity Reaction Status Date / Time No Known Allergies Allergy Verified 06/20/22 07:23 Physical Exam Vitals: Vital Signs Temp Pulse Resp BP Pulse Ox 06/21/22 08:00 99.3 F 75 18 121/68 95 06/21/22 02:00 97.5 F L 82 17 134/70 98 06/20/22 20:00 98.7 F 85 16 146/71 98 06/20/22 17:16 98.2 F 75 18 163/73 97 06/20/22 16:30 57 L 17 158/72 98 06/20/22 16:00 78 16 151/72 06/20/22 15:30 74 18 161/72 97 06/20/22 15:00 86 16 143/63 06/20/22 14:30 78 17 149/69 97 06/20/22 14:00 70 16 160/76 98 06/20/22 13:30 74 16 170/84 98 06/20/22 13:03 80 18 133/63 98 06/20/22 12:30 71 18 150/69 99 06/20/22 11:45 82 18 154/79 99 06/20/22 11:15 18 L 17 157/78 99 06/20/22 10:50 70 17 155/77 98 06/20/22 10:35 71 17 153/73 99 06/20/22 10:20 82 17 137/63 100 06/20/22 10:08 97.3 F L 96 16 123/69 96 Intake and Output 06/20/22 06/21/22 06/21/22 22:59 06:59 14:59 Intake Total 480 Output Total 500 Balance -20 Intake: Oral 480 Output: Urine 500 Other: Voiding Method Bedpan # Voids 1 Weight 40 kg - Constitutional General appearance: thin - EENT Eyes: EOMI - Neck Neck: no lymphadenopathy - Respiratory Respiratory: bilateral: CTA - Cardiovascular Rhythm: regular Heart sounds: normal: S1, S2 Abnormal Heart Sounds: no S3 Gallop - Gastrointestinal General gastrointestinal: soft, no tenderness - Integumentary Integumentary: no cellulitis - Neurologic Neurologic: CNII-XII intact - Psychiatric Psychiatric: A&O x's 3, appropriate affect Results CBC & Chem 7: 06/20/22 08:22 06/20/22 08:22 Labs: Abnormal Lab Results - Last 24 Hours (Table) 06/20/22 06/20/22 06/20/22 Range/Units 08:22 08:22 11:29 RBC 3.65 L (3.80-5.40) m/uL Hct 33.0 L (34.0-46.0) % Creatinine 0.32 L (0.52-1.04) mg/dL Glucose 181 H (74-99) mg/dL POC Glucose (mg/dL) 182 H (70-110) mg/dL Calcium 7.9 L (8.4-10.2) mg/dL 06/20/22 06/20/22 Range/Units 14:54 20:57 RBC (3.80-5.40) m/uL Hct (34.0-46.0) % Creatinine (0.52-1.04) mg/dL Glucose (74-99) mg/dL POC Glucose (mg/dL) 235 H 375 H (70-110) mg/dL Calcium (8.4-10.2) mg/dL Assessment and Plan (1) Hip fracture due to osteoporosis Current Visit: Yes Status: Acute Code(s): M80.059A - AGE-REL OSTEOPOR W CURRENT PATH FRACTURE, UNSP FEMUR, INIT SNOMED Code(s): 348051507 (2) Opiate dependence Current Visit: No Status: Acute Code(s): F11.20 - OPIOID DEPENDENCE, UNCOM PLICATED SNOMED Code(s): 90378917 (3) Uncontrolled diabetes mellitus Current Visit: No Status: Acute Code(s): VCS9029 - SNOMED Code(s): 63457147 Plan: Continue appropriate postoperative protocols. Reconcile home medications. Place on sliding scale. Labwork is nominal. Check CBC and CMP in a.m.
[2022-06-21] MEDS: ATORVASTATIN 40 MG TAB PO SCH (08:33)
[2022-06-21] MEDS: APIXABAN 2.5 MG TABLET PO SCH ×2 (08:33→20:10)
[2022-06-21] MEDS: DULoxetine HCL 30 MG CAPSULE.DR PO SCH (08:33)
[2022-06-21] MEDS: lisinopriL 5 MG TAB PO SCH (08:33)
[2022-06-21] MEDS: INSULIN DETEMIR (LEVEMIR) 100 UNIT/ML SYR SQ SCH (08:33)
[2022-06-21] MEDS: LACTATED RINGERS 1,000 ML IV SCH (08:34)
[2022-06-21 10:05] LABS: Basophils # (A) 0.03 X 10*3/uL (0.00-0.10); Basophils % (A) 0.3 %; Eosinophils # (A) 0.18 X 10*3/uL (0.04-0.35); Eosinophils % (A) 2.1 %; HCT 31.4 % (37.2-46.3); HGB 10.8 g/dL (12.0-15.0); Immature Grans, Automated 0.6 %; Lymphocytes # (A) 1.83 X 10*3/uL (0.90-5.00); Lymphocytes % (A) 21.1 %; MCH 30.8 pg (27.0-32.0); MCHC 34.4 g/dL (32.0-37.0); MCV 89.5 fL (80.0-97.0); Mean Platelet Volume 8.9 fL (9.5-12.2); Monocytes # (A) 0.71 X 10*3/uL (0.20-1.00); Monocytes % (A) 8.2 %; NRBC Per 100 WBC 0 /100 WBCS (0.0-0.0); Neutrophils # (A) 5.88 X 10*3/uL (1.80-7.70); Neutrophils % (A) 67.7 %; Platelet Count 383 X 10*3/uL (140-440); RBC 3.51 X 10*6/uL (4.10-5.20); RDW 12.5 % (11.5-14.5); WBC 8.68 X 10*3/uL (4.50-10.00)
--- NOTE | 2022-06-21 13:06 | P.PN ---
Subjective Progress Note Date: 06/21/22 This is a 62-year-old female who is status post closed reduction and intramedullary hip screw right hip. This is postoperative day #1 and patient is seen and evaluated at bedside with Dr. Jakub Gomez. Patient states that she hasn't worked with physical therapy yet today. Objective - Vital Signs Vital signs: Vital Signs Temp 99.3 F 06/21/22 08:00 Pulse 75 06/21/22 08:00 Resp 18 06/21/22 08:00 BP 121/68 06/21/22 08:00 Pulse Ox 95 06/21/22 08:00 FiO2 Intake & Output 06/20/22 06/21/22 06/21/22 18:59 06:59 18:59 Intake Total 1531 Output Total 900 Balance 631 Weight 40 kg Intake: IV 1051 Oral 480 Output: Urine 800 Estimated Blood Loss 100 Other: Voiding Method Bedpan Bedpan # Voids 1 - Exam Vital signs are stable. Patient is in no acute distress and is alert and oriented 3. Calf is soft and nontender to palpation. Dressing is clean, dry, and intact. Patient has full foot and ankle motion without pain or difficulty. Sensation intact. Neurovascular status and circulatory status are intact. - Labs CBC & Chem 7: 06/21/22 05:42 06/20/22 08:22 Labs: Abnormal Lab Results - Last 24 Hours (Table) 06/20/22 06/20/22 06/21/22 Range/Units 14:54 20:57 05:42 RBC 3.51 L (4.10-5.20) X 10*6/uL Hgb 10.8 L (12.0-15.0) g/dL Hct 31.4 L (37.2-46.3) % MPV 8.9 L (9.5-12.2) fL Immature Gran # 0.05 H (0.00-0.04) X 10*3/uL POC Glucose (mg/dL) 235 H 375 H (70-110) mg/dL Assessment and Plan Assessment: Closed reduction and intramedullary hip screw right hip (1) Intertrochanteric fracture of right hip Current Visit: Yes Status: Acute Code(s): S72.141A - DISPLACED INTERTROCHANTERIC FRACTURE OF RIGHT FEMUR, INIT SNOMED Code(s): 300281235 Plan: Continue routine postop care and pain control. Continue anticoagulation with Eliquis. Weightbearing as tolerated with a walker. Daily dressing changes. Appreciate input from medicine. Anticipate discharge in the next 24-48 hours.
[2022-06-21 13:15] VITALS: BMI 13.4
--- NOTE | 2022-06-21 15:58 | CDI ---
Documentation Clarification Form Date: 06/21/2022 03:25:59 PM From: Alena Agrawal Phone: Admit Date: 06/20/2022 07:06:00 AM Patient Name: Suzi Alcantara Visit Number: [id number] Discharge Date: ATTENTION: The Clinical Documentation Specialists (CDI) and [facility] Coding Staff appreciate your assistance in clarifying documentation. Please respond to the clarification below the line at the bottom and electronically sign. The CDI & [facility] Coding staff will review the response and follow-up if needed. Please note: Queries are made part of the Legal Health Record. If you have any questions, please contact the author of this message via ITS. Dr. Remington Zabala There is documentation of uncontrolled diabetes mellitus in the medical consult on 06/21/2022. Additional clarification is requested. History/Risk Factors: Right intertrochanteric hip fracture, Coronary Artery Disease, Diabetes Mellitus Hypertension, DJD of lumbar spine, current smoker Clinical Indicators: 62-year-old female [id number] with fall last week and stayed home until she wouldn't take the pain. Present for elective surgical repair. 06/20 Glucose 227, 182 235, 375 Treatment: Monitor blood sugar AC & HS Novolog 3 unit SQ once 06/20 Levemir 16 Units SQ Daily 06/21 Can you please clarify type of uncontrolled diabetes mellitus and if hyperglycemia or hypoglycemia? [ x ] Diabetes Mellitus type 2 with Hyperglycemia [ ] Other, please specify [ ] Unable to determine (Template Last Revised: October 2020) MTDD
[2022-06-21 19:50] LABS: Glucose,Whole Blood 346 mg/dL (70-110)
[2022-06-21] MEDS: INSULIN ASPART (NovoLOG) 100 UNIT/ML VIAL SQ SCH (20:10)
[2022-06-21] MEDS: SENNOSIDES-DOCUSATE SODIUM 1 EACH TAB PO SCH (20:10)
[2022-06-22] MEDS: HYDROmorphone 1 MG/ML 1 ML SYRINGE IVP PRN ×4 (03:03→20:31)
[2022-06-22] MEDS: oxyCODONE-APAP 7.5-325MG 1 EACH TAB PO PRN ×4 (05:16→21:25)
[2022-06-22] MEDS: diazePAM 2 MG TAB PO PRN ×3 (05:17→21:25)
[2022-06-22 06:32] LABS: Glucose,Whole Blood 324 mg/dL (70-110)
[2022-06-22] MEDS: INSULIN ASPART (NovoLOG) 100 UNIT/ML VIAL SQ SCH ×4 (06:50→22:05)
--- NOTE | 2022-06-22 07:28 | P.PN ---
Subjective Progress Note Date: 06/22/22 Principal diagnosis: Right hip fracture. Status post close reduction and insertion of intramedullary hip screw right hip. This is a 62-year-old female who is postop day #2 status post close reduction and insertion of intramedullary hip screw right hip. The patient is stable from an orthopedic standpoint. She is debating between home with home care versus inpatient rehab. She would like a more day of physical therapy before she decides on her discharge plan. Vital signs are stable. Objective - Vital Signs Vital signs: Vital Signs Temp 98.1 F 06/22/22 02:00 Pulse 85 06/22/22 02:00 Resp 16 06/22/22 02:00 BP 138/75 06/22/22 02:00 Pulse Ox 97 06/22/22 02:00 FiO2 Intake & Output 06/21/22 06/22/22 06/22/22 18:59 06:59 18:59 Output Total 300 Balance -300 Weight 40 kg Output: Urine 300 Other: Voiding Method Bedpan External Catheter # Voids 4 - Exam This is a pleasant 62-year-old female in no acute distress. She is alert and oriented 3. Exam of the right hip reveals that her postoperative dressing is clean, dry and intact. She has full foot and ankle motion without difficulty or pain. Neurovascular status to the lower extremities is intact. - Labs CBC & Chem 7: 06/21/22 05:42 06/20/22 08:22 Labs: Abnormal Lab Results - Last 24 Hours (Table) 06/21/22 06/21/22 06/21/22 Range/Units 05:42 05:42 19:48 RBC 3.51 L (4.10-5.20) X 10*6/uL Hgb 10.8 L (12.0-15.0) g/dL Hct 31.4 L (37.2-46.3) % MPV 8.9 L (9.5-12.2) fL Immature Gran # 0.05 H (0.00-0.04) X 10*3/uL POC Glucose (mg/dL) 346 H (70-110) mg/dL Hemoglobin A1c 10.3 H (0.0-6.0) % 06/22/22 Range/Units 06:31 RBC (4.10-5.20) X 10*6/uL Hgb (12.0-15.0) g/dL Hct (37.2-46.3) % MPV (9.5-12.2) fL Immature Gran # (0.00-0.04) X 10*3/uL POC Glucose (mg/dL) 324 H (70-110) mg/dL Hemoglobin A1c (0.0-6.0) % Assessment and Plan (1) Hip fracture due to osteoporosis Current Visit: Yes Status: Acute Code(s): M80.059A - AGE-REL OSTEOPOR W CURRENT PATH FRACTURE, UNSP FEMUR, INIT SNOMED Code(s): 157885474 (2) Intertrochanteric fracture of right hip Current Visit: Yes Status: Acute Code(s): S72.141A - DISPLACED INTERTROCHANTERIC FRACTURE OF RIGHT FEMUR, INIT SNOMED Code(s): 810361315 Plan: The clinical findings are discussed with the patient. We will continue with physical therapy and routine postoperative care today. Plan discharged to home versus rehab tomorrow.
--- NOTE | 2022-06-22 08:33 | P.PN ---
Subjective Progress Note Date: 06/22/22 Principal diagnosis: Postop day #2 for hip fracture repair. The patient had a long discussion about where she should go for discharge once she is stable from an orthopedic standpoint. I did suggest strongly that she go to a rehab unit at the [facility]. Unfortunate, I do suspect she wants to go home because she does want to smoke tobacco. I had a long discussion with her daughter this past Monday when I ran into her at the grocery store. Again, most appropriate would be skilled rehab. No voiding difficulties. Nausea, vomiting or diarrhea Objective - Vital Signs Vital signs: Vital Signs Temp 98.1 F 06/22/22 02:00 Pulse 85 06/22/22 02:00 Resp 16 06/22/22 02:00 BP 138/75 06/22/22 02:00 Pulse Ox 97 06/22/22 02:00 FiO2 Intake & Output 06/21/22 06/22/22 06/22/22 18:59 06:59 18:59 Output Total 300 Balance -300 Weight 40 kg Output: Urine 300 Other: Voiding Method Bedpan External Catheter # Voids 4 - Constitutional General appearance: Present: thin - EENT Eyes: Absent: abnormal pupil - Respiratory Respiratory: bilateral: diminished - Cardiovascular Rhythm: regular Heart sounds: normal: S1, S2 Abnormal Heart Sounds: Absent: S3 Gallop - Gastrointestinal General gastrointestinal: Present: soft. Absent: tenderness - Labs CBC & Chem 7: 06/21/22 05:42 06/20/22 08:22 Labs: Abnormal Lab Results - Last 24 Hours (Table) 06/21/22 06/21/22 06/21/22 Range/Units 05:42 05:42 19:48 RBC 3.51 L (4.10-5.20) X 10*6/uL Hgb 10.8 L (12.0-15.0) g/dL Hct 31.4 L (37.2-46.3) % MPV 8.9 L (9.5-12.2) fL Immature Gran # 0.05 H (0.00-0.04) X 10*3/uL POC Glucose (mg/dL) 346 H (70-110) mg/dL Hemoglobin A1c 10.3 H (0.0-6.0) % 06/22/22 Range/Units 06:31 RBC (4.10-5.20) X 10*6/uL Hgb (12.0-15.0) g/dL Hct (37.2-46.3) % MPV (9.5-12.2) fL Immature Gran # (0.00-0.04) X 10*3/uL POC Glucose (mg/dL) 324 H (70-110) mg/dL Hemoglobin A1c (0.0-6.0) % Assessment and Plan (1) Hip fracture due to osteoporosis Current Visit: Yes Status: Acute Code(s): M80.059A - AGE-REL OSTEOPOR W CURRENT PATH FRACTURE, UNSP FEMUR, INIT SNOMED Code(s): 767337588 (2) Opiate dependence Current Visit: No Status: Acute Code(s): F11.20 - OPIOID DEPENDENCE, UNCOMPLICATED SNOMED Code(s): 52129456 (3) Uncontrolled diabetes mellitus Current Visit: No Status: Acute Code(s): LNN4939 - SNOMED Code(s): 13350970 Plan: Continue appropriate postoperative protocols. Anticipate discharge to [facility] in a.m.
--- NOTE | 2022-06-22 09:33 | CDI ---
Documentation Clarification Form Date: 06/22/2022 From: Alena Agrawal RN, CCDS Admit Date: 06/20/2022 07:06:00 AM Patient Name: Suzi Alcantara Visit Number: [id number] Discharge Date: ATTENTION: The Clinical Documentation Specialists (CDI) and [facility] Coding Staff appreciate your assistance in clarifying documentation. Please respond to the clarification below the line at the bottom and electronically sign. The CDI & [facility] Coding staff will review the response and follow-up if needed. Please note: Queries are made part of the Legal Health Record. If you have any questions, please contact the author of this message via ITS. Dr. Remington Zabala Malnutrition, severe acute is documented in the nutrition diagnostic assessment. Additional clarification regarding the severity of malnutrition is requested from the attending. History/Risk Factors: CAD, memory impairment, Hypertension, Diabetes Mellitus, Displaced Interochanteric fracture Clinical Indicators: 62-year-old female with poor appetite for 1-3 months. 15% weight loss. Decreased intake Glucose 181, Cr 032, Ca 7.9 Current BMI: 13.4 Insufficient energy intake: Yes, 3 months Unintentional Weight Loss: Yes Loss of subcutaneous fat: Yes Loss of muscle mass: Yes Decreased hand cutter banana room strength: RD Consult Assessment: Malnutrition severe, acute Treatment: Dietary Consult: Yes Supplements: Carbohydrate-modified diet commercial beverage Glucerna TID Nutrition education, increase intake to maintain lean muscle mass Lab monitoring, Monitor PO, supplement intake, follow up 06/23/22 Please clarify the type of malnutrition, if known: [ ] Mild Protein-Calorie Malnutrition [ x ] Moderate Protein-Calorie Malnutrition [ ] Severe Protein-Calorie Malnutrition [ ] Other condition, please specify [ ] Unable to Determine (Template Last Revised: October 2020) MTDD
[2022-06-22] MEDS: ATORVASTATIN 40 MG TAB PO SCH (10:04)
[2022-06-22] MEDS: lisinopriL 5 MG TAB PO SCH (10:04)
[2022-06-22] MEDS: DULoxetine HCL 30 MG CAPSULE.DR PO SCH (10:05)
[2022-06-22] MEDS: INSULIN DETEMIR (LEVEMIR) 100 UNIT/ML SYR SQ SCH (10:05)
[2022-06-22] MEDS: NICOTINE 14MG/24HR PATCH TRANSDERM SCH (10:05)
[2022-06-22] MEDS: APIXABAN 2.5 MG TABLET PO SCH ×2 (10:05→20:33)
[2022-06-22 11:31] LABS: HCT 32.7 % (37.2-46.3); MCH 30.7 pg (27.0-32.0); MCHC 33.6 g/dL (32.0-37.0); MCV 91.3 fL (80.0-97.0); Mean Platelet Volume 8.8 fL (9.5-12.2); NRBC Per 100 WBC 0 /100 WBCS (0.0-0.0); Platelet Count 372 X 10*3/uL (140-440); RBC 3.58 X 10*6/uL (4.10-5.20); RDW 12.4 % (11.5-14.5); WBC 8.44 X 10*3/uL (4.50-10.00)
[2022-06-22 11:36] LABS: African American GFR (CKD) 140.2 (60.0-200.0); Albumin 3.4 g/dL (3.8-4.9); Albumin/Globulin Ratio 1.62 (1.60-3.17); Anion Gap 10.7 mmol/L (10.00-18.00); Calcium 8.2 mg/dL (8.7-10.3); Carbon Dioxide 28.3 mmol/L (20.0-27.5); Globulin 2.1 g/dL (1.6-3.3); Potassium 4.1 mmol/L (3.5-5.5); Total Bilirubin 0.2 mg/dL (0.30-1.20); Total Protein 5.5 g/dL (6.2-8.2)
[2022-06-22 11:51] LABS: Glucose,Whole Blood 390 mg/dL (70-110)
[2022-06-22] MEDS: SODIUM CHLORIDE 0.9% 1,000 ML IV SCH (12:14)
[2022-06-22 17:06] LABS: Glucose,Whole Blood 241 mg/dL (70-110)
[2022-06-22] MEDS: SENNOSIDES-DOCUSATE SODIUM 1 EACH TAB PO SCH (20:33)
[2022-06-22 21:59] LABS: Glucose,Whole Blood 363 mg/dL (70-110)
[2022-06-23] MEDS: HYDROmorphone 1 MG/ML 1 ML SYRINGE IVP PRN ×3 (00:51→12:33)
[2022-06-23] MEDS: oxyCODONE-APAP 7.5-325MG 1 EACH TAB PO PRN ×3 (03:30→15:34)
[2022-06-23 06:00] LABS: Glucose,Whole Blood 264 mg/dL (70-110)
[2022-06-23] MEDS: INSULIN ASPART (NovoLOG) 100 UNIT/ML VIAL SQ SCH ×2 (07:01→12:34)
[2022-06-23 08:06] VITALS: RESP 16
[2022-06-23] MEDS: APIXABAN 2.5 MG TABLET PO SCH (08:24)
[2022-06-23] MEDS: INSULIN DETEMIR (LEVEMIR) 100 UNIT/ML SYR SQ SCH (08:24)
[2022-06-23] MEDS: lisinopriL 5 MG TAB PO SCH (08:24)
[2022-06-23] MEDS: DULoxetine HCL 30 MG CAPSULE.DR PO SCH (08:25)
[2022-06-23] MEDS: ATORVASTATIN 40 MG TAB PO SCH (08:25)
[2022-06-23] MEDS: NICOTINE 14MG/24HR PATCH TRANSDERM SCH (08:29)
--- NOTE | 2022-06-23 08:35 | P.DS ---
Providers Date of admission: 06/20/22 07:06 Attending physician: Jakub Gomez Consults: 06/20/22 08:53 Consult Physician Routine Consulting Provider: Remington Zabaal Consult Reason/Comments: medical management Do you want consulting provider notified?: Yes Primary care physician: Remington Zabala - Discharge Diagnosis(es) (1) Hip fracture due to osteoporosis Current Visit: Yes Status: Acute (2) Opiate dependence Current Visit: No Status: Acute (3) Uncontrolled diabetes mellitus Current Visit: No Status: Acute Hospital Course: This a 62-year-old female admitted for right hip fracture. Right IM nailing was completed amputation is tolerating well. She reports she has been up walking to the bathroom. Pain is controlled. Plan is to go to [facility] for rehab. Okay for discharge if cleared by orthopedics Patient seen and evaluated by nurse practitioner, physician in agreement with plan Plan - Discharge Summary Discharge Rx Participant: Yes New Discharge Prescriptions: New Sennosides [Senokot] 2 tab PO DAILY PRN #60 tablet PRN Reason: Constipation Nicotine 14Mg/24Hr Patch [Habitrol] 1 patch TRANSDERM DAILY patch Apixaban [Eliquis] 2.5 mg PO BID 35 Days #70 tab Continue lisinopriL [Zestril] 5 mg PO DAILY DULoxetine HCL [Cymbalta] 30 mg PO DAILY Ciprofloxacin HCl [Cipro] 500 mg PO Q12HR 5 Days #10 tab diazePAM 2 mg PO TID PRN 90 Days #90 tab PRN Reason: Anxiety Aspirin EC [Ecotrin Low Dose] 81 mg PO DAILY metFORMIN HCL 1,000 mg PO BID@0900,2100 Simvastatin [Zocor] 80 mg PO DAILY INSULIN ASPART (NovoLOG) [NovoLOG (formulary)] See Protocol SQ TID-W/MEALS PRN PRN Reason: high blood sugar Insulin Detemir [Levemir Flextouch Pen] 16 units SQ DAILY oxyCODONE-APAP 7.5-325MG [Percocet 7.5-325 mg] 1 tab PO QID PRN #28 tab PRN Reason: Pain Discharge Medication List Aspirin EC [Ecotrin Low Dose] 81 mg PO DAILY 02/15/22 [History] DULoxetine HCL [Cymbalta] 30 mg PO DAILY 02/15/22 [History] Simvastatin [Zocor] 80 mg PO DAILY 02/15/22 [History] lisinopriL [Zestril] 5 mg PO DAILY 02/15/22 [History] metFORMIN HCL 1,000 mg PO BID@0900,2100 02/15/22 [History] INSULIN ASPART (NovoLOG) [NovoLOG (formulary)] See Protocol SQ TID-W/MEALS PRN 05/31/22 [History] Insulin Detemir [Levemir Flextouch Pen] 16 units SQ DAILY 05/31/22 [History] Ciprofloxacin HCl [Cipro] 500 mg PO Q12HR 5 Days #10 tab 06/02/22 [Rx] Apixaban [Eliquis] 2.5 mg PO BID 35 Days #70 tab 06/20/22 [Rx] Sennosides [Senokot] 2 tab PO DAILY PRN #60 tablet 06/20/22 [Rx] Nicotine 14Mg/24Hr Patch [Habitrol] 1 patch TRANSDERM DAILY patch 06/23/22 [Rx] diazePAM 2 mg PO TID PRN 90 Days #90 tab 06/23/22 [Rx] oxyCODONE-APAP 7.5-325MG [Percocet 7.5-325 mg] 1 tab PO QID PRN #28 tab 06/23/22 [Rx] Follow up Appointment(s)/Referral(s): Jakub Gomez DO [Doctor of Osteopathic Medicine] - 2 Weeks Remington Zabala MD [Primary Care Provider] - 1 Week Activity/Diet/Wound Care/Special Instructions: Weightbearing as tolerated. Daily dressing changes. [place] to be removed in 10-14 days. Please take Eliquis as prescribed. Pain management per Dr. Zabala. Recommend use of compression stockings daily until follow up to help prevent swelling and blood clots. May remove at night before sleeping. Please follow-up with [facility] in 2 weeks and call with any questions or concerns, . Discharge Disposition: TRANSFER TO SNF/F
[2022-06-23 09:33] LABS: Basophils # (A) 0.03 X 10*3/uL (0.00-0.10); Basophils % (A) 0.4 %; Eosinophils # (A) 0.27 X 10*3/uL (0.04-0.35); Eosinophils % (A) 3.4 %; HCT 31.4 % (37.2-46.3); HGB 10.7 g/dL (12.0-15.0); Immature Grans, Automated 0.5 %; Lymphocytes # (A) 1.64 X 10*3/uL (0.90-5.00); Lymphocytes % (A) 20.9 %; MCH 30.8 pg (27.0-32.0); MCHC 34.1 g/dL (32.0-37.0); MCV 90.5 fL (80.0-97.0); Monocytes % (A) 6.4 %; NRBC Per 100 WBC 0 /100 WBCS (0.0-0.0); Neutrophils # (A) 5.35 X 10*3/uL (1.80-7.70); Neutrophils % (A) 68.4 %; Platelet Count 344 X 10*3/uL (140-440); RBC 3.47 X 10*6/uL (4.10-5.20); RDW 12.4 % (11.5-14.5); WBC 7.83 X 10*3/uL (4.50-10.00)
[2022-06-23] MEDS: diazePAM 2 MG TAB PO PRN (09:39)
[2022-06-23 11:14] LABS: Glucose,Whole Blood 355 mg/dL (70-110)
--- NOTE | 2022-06-23 13:33 | P.DS ---
Providers Date of admission: 06/20/22 07:06 Expected date of discharge: 06/23/22 Attending physician: Jakub Gomez Consults: 06/20/22 08:53 Consult Physician Routine Consulting Provider: Remington Zabala Consult Reason/Comments: medical management Do you want consulting provider notified?: Yes Primary care physician: Remington Zabala - Discharge Diagnosis(es) (1) Intertrochanteric fracture of right hip Current Visit: Yes Status: Acute Hospital Course: This is a 62-year-old female who presented as an outpatient after a fall for evaluation of right hip pain x1 week. X-rays and CT revealed an intertrochanteric fracture of the right femur. After discussion and consideration patient elects to proceed with closed reduction and intramedullary hip screw right hip. The patient is seen preoperatively by Dr. Gomez. Patient is admitted to [facility] on 06/20/2022 for closed reduction and intramedullary hip screw right hip. The procedures performed without complication or sequelae. The patient is doing well postoperatively. Labs and vital signs are stable on day of discharge. On day of discharge patient's hip incision is healing well. There is minimal erythema. There is no drainage noted at this time. There is minimal soft tissue swelling to the hip and thigh. Patient has full foot and ankle motion without difficulty or pain. Neurovascular status to the right lower extremity is intact. Patient is discharged to rehab in good condition. Please see med rec for accurate list of home medications. Plan - Discharge Summary Discharge Rx Participant: Yes New Discharge Prescriptions: New Sennosides [Senokot] 2 tab PO DAILY PRN #60 tablet PRN Reason: Constipation Nicotine 14Mg/24Hr Patch [Habitrol] 1 patch TRANSDERM DAILY patch Apixaban [Eliquis] 2.5 mg PO BID 35 Days #70 tab Continue lisinopriL [Zestril] 5 mg PO DAILY DULoxetine HCL [Cymbalta] 30 mg PO DAILY Ciprofloxacin HCl [Cipro] 500 mg PO Q12HR 5 Days #10 tab diazePAM 2 mg PO TID PRN 90 Days #90 tab PRN Reason: Anxiety Aspirin EC [Ecotrin Low Dose] 81 mg PO DAILY metFORMIN HCL 1,000 mg PO BID@0900,2100 Simvastatin [Zocor] 80 mg PO DAILY INSULIN ASPART (NovoLOG) [NovoLOG (formulary)] See Protocol SQ TID-W/MEALS PRN PRN Reason: high blood sugar Insulin Detemir [Levemir Flextouch Pen] 16 units SQ DAILY oxyCODONE-APAP 7.5-325MG [Percocet 7.5-325 mg] 1 tab PO QID PRN #28 tab PRN Reason: Pain Discharge Medication List Aspirin EC [Ecotrin Low Dose] 81 mg PO DAILY 02/15/22 [History] DULoxetine HCL [Cymbalta] 30 mg PO DAILY 02/15/22 [History] Simvastatin [Zocor] 80 mg PO DAILY 02/15/22 [History] lisinopriL [Zestril] 5 mg PO DAILY 02/15/22 [History] metFORMIN HCL 1,000 mg PO BID@0900,2100 02/15/22 [History] INSULIN ASPART (NovoLOG) [NovoLOG (formulary)] See Protocol SQ TID-W/MEALS PRN 05/31/22 [History] Insulin Detemir [Levemir Flextouch Pen] 16 units SQ DAILY 05/31/22 [History] Ciprofloxacin HCl [Cipro] 500 mg PO Q12HR 5 Days #10 tab 06/02/22 [Rx] Apixaban [Eliquis] 2.5 mg PO BID 35 Days #70 tab 06/20/22 [Rx] Sennosides [Senokot] 2 tab PO DAILY PRN #60 tablet 06/20/22 [Rx] Nicotine 14Mg/24Hr Patch [Habitrol] 1 patch TRANSDERM DAILY patch 06/23/22 [Rx] diazePAM 2 mg PO TID PRN 90 Days #90 tab 06/23/22 [Rx] oxyCODONE-APAP 7.5-325MG [Percocet 7.5-325 mg] 1 tab PO QID PRN #28 tab 06/23/22 [Rx] Follow up Appointment(s)/Referral(s): Remington Zabala MD [Primary Care Provider] - 1 Week (office is closed please call for appointment) Jakub Gomez DO [Doctor of Osteopathic Medicine] - 06/27/22 1:30 pm Activity/Diet/Wound Care/Special Instructions: Weightbearing as tolerated. Daily dressing changes. [place] to be removed in 10-14 days. Please take Eliquis as prescribed. Pain management per Dr. Zabala. Recommend use of compression stockings daily until follow up to help prevent swelling and blood clots. May remove at night before sleeping. Please follow-up with [facility] in 2 weeks and call with any questions or concerns, . Discharge Disposition: TRANSFER TO SNF/ECF
[2022-06-23 15:36] VITALS: BP 128/56; PULSE 101; TEMP 98.4
== END 2022-06-23 15:40 | DRG 481 ==
LOC: 2ORMAIN 07:06 → EDSTATUS 09:05 → 5NMEDONC 10:38 → 4SSUR 16:19
PROVIDERS: ADMIT Orthopaedic Surgery; ATTEND Orthopaedic Surgery
PROC: 0QS636Z Reposition Right Upper Femur with Intramedullary Internal Fixation Device, Percutaneous Approach (ICD-10-PCS; principal; 2022-06-20 09:05)
DX: M80.851A Other osteoporosis with current pathological fracture, right femur, initial encounter for fracture (principal); E44.0 Moderate protein-calorie malnutrition; Z68.1 Body mass index [BMI] 19.9 or less, adult; F11.20 Opioid dependence, uncomplicated; E11.40 Type 2 diabetes mellitus with diabetic neuropathy, unspecified; E11.65 Type 2 diabetes mellitus with hyperglycemia; Z79.4 Long term (current) use of insulin; M16.11 Unilateral primary osteoarthritis, right hip; M47.816 Spondylosis without myelopathy or radiculopathy, lumbar region; F32.A Depression, unspecified; I25.10 Atherosclerotic heart disease of native coronary artery without angina pectoris; E78.5 Hyperlipidemia, unspecified; I10 Essential (primary) hypertension; F17.210 Nicotine dependence, cigarettes, uncomplicated; Z79.82 Long term (current) use of aspirin; Z79.84 Long term (current) use of oral hypoglycemic drugs; Z79.899 Other long term (current) drug therapy; Z87.440 Personal history of urinary (tract) infections; Z95.1 Presence of aortocoronary bypass graft; Y92.010 Kitchen of single-family (private) house as the place of occurrence of the external cause; W01.0XXA Fall on same level from slipping, tripping and stumbling without subsequent striking against object, initial encounter
CPT/HCPCS: 73501; 73502; 80048; 80053; 83036; 85025; 85027

== ENCOUNTER → 2024-04-12 | Outpatient (CLI) | payer MEDICARE ==
--- NOTE | 2024-04-12 14:11 | US ---
EXAMINATION TYPE: US kidneys/renal and bladder DATE OF EXAM: 04/12/2024 COMPARISON: 05/31/2022 CLINICAL INDICATION: Female, 64 years old with history of R94.4 ABN RENAL FUNCTION; Abnormal labs per patient. EXAM MEASUREMENTS: Right Kidney: 10.6 x 4.8 x 5.2 cm Left Kidney: 9.9 x 5.1 x 5.6 cm Right Kidney: No hydronephrosis or masses seen, limited lower pole Left Kidney: Cystic lesions seen with largest lower mid = 1.2 x 1.2 x 1.2 cm Bladder: mildly distended, anechoic Bilateral Jets not seen There is no evidence for hydronephrosis at this point in time. No nephrolithiasis is seen. No renard s are identified. The urinary bladder is anechoic. Bilateral ureteral jets are seen. IMPRESSION: 1. No evidence for obstructive uropathy 2. Simple appearing left renal cyst.
== END | disposition home or self-care (01) ==
LOC: RADUSWWP 12:07
PROVIDERS: ATTEND Family Medicine
DX: N28.1 Cyst of kidney, acquired (principal)
CPT/HCPCS: 76770